=== PATIENT | female | born 1980 | race Caucasian/White ===

== ENCOUNTER 2022-12-17 15:22 | Outpatient (REF) | payer OTHER, SELFPAY ==
[2022-12-17 17:09] LABS: Alanine Aminotransferase 8 U/L (0-31); Albumin Level 4.4 g/dL (3.5-5.0); Alkaline Phosphatase 42 U/L (39-117); Anion Gap 16 (12-20); Aspartate Amino Transferase 14 U/L (5-31); Bilirubin Total 0.6 mg/dL (0.0-1.0); Blood Urea Nitrogen 7 mg/dL (9-16); Calcium 9.5 mg/dL (8.4-10.2); Carbon Dioxide 24 mmol/L (22-29); Chloride 105 mmol/L (96-108); Estimated Glomerular Filt Rate > 60; Glucose Random 97 mg/dL (60-115); Sodium 141 mmol/L (135-145); Total Protein 6.9 g/dL (6.5-8.0)
[2022-12-18 03:50] LABS: HBc Num1 0.08 S/CO (0.00-0.79); HBsAGNum1 0.33 S/CO (0.00-0.99); HIV AB/AG Nonreactive (Nonreactive); HIV Num 1 0.07 S/CO (0.00-0.99); Hepatitis A Antibody IgM 0.21 Index (0-0.79); Hepatitis B Core Antibody Nonreactive (Nonreactive); Hepatitis B Surface Antigen Negative (Negative); ~HepC Num1 0.08 S/CO (0.00-0.79); ~Hepatitis A Antibody IgM Nonreactive (Nonreactive); ~Hepatitis B Surface Antibody NONREACTIVE (Nonreactive); ~Hepatitis C Antibody Nonreactive (Nonreactive)
== END 2022-12-17 15:23 | disposition home or self-care (01) ==
LOC: HO.LAB 15:22
PROVIDERS: PCP Internal Medicine; Visit Provider Nurse Practitioner Psychiatric/Mental Health
DX: Z79.899 Other long term (current) drug therapy (principal); Z51.81 Encounter for therapeutic drug level monitoring
CPT/HCPCS: 36415; 80053; 80305; 86704; 86706; 86709; 86803; 87340; 87389

== ENCOUNTER 2022-12-17 15:22 | Outpatient (AMB) | payer OTHER, SELFPAY ==
--- OUTSIDE RECORDS SUMMARY | 2022-12-17 15:23 | XMS_ITS | Continuity of Care Document ---
Author Name Unknown Organization [facility] ter Address [address] [place] [id number] Care Team Providers Care Health Science Writer Name Role Phone Chio MATTSON, Sadia Primary Care Physician [phone] Encounter [facility] [place] Date(s): 03/23/21 - 03/26/[address] [id number]- Encounter Diagnosis COVID-19(Final) - 03/23/21 Discharge Disposition: A-D/C Home Attending Physician: Joselito Kilpatrick MD, Kirit Boone Admitting Physician: Rey Caro MD Referring Physician: Not on Staff, Referring MD Allergies, Adverse Reactions, Alerts Substance Reaction Severity Status NKA Active Immunizations Given and Recorded Vaccine Date Status Refusal Reason Adacel (Tdap) (oldterm) 04/30/12 Given Fluzone (oldterm) 1 01/23/12 Given 1Admin Note: 09/24/11 VIS Given. Medications Mirena 52 mg intrauteral device 1 each = 52 mg, Intrauterine, Once, # 1 each, 0 Refills, Soft Stop Start Date: 07/20/12 Status: Ordered Suboxone 12 mg-3 mg sublingual film 1 film, Sublingual, Daily, dissolve under the tongue, 0 Refills, Maintenance, 03/24/21 3:17:00 EST,Film, Partial fill upon patient request if the prescription is for a schedule II opioid drug. Start Date: 03/24/21 Status: Ordered Zofran 4 mg oral tablet 1 tablet = 4 mg, By Mouth, Every 8 hours, PRN as needed for nausea/vomiting, for 5 days, # 15 tablet, 0 Refills, Acute 03/31/21 13:09:00 EST, 03/26/21 13:09:00 EST, Tablet, [id number], Partial fill upon patient request if the prescription is f... Start Date: 03/26/21 Stop Date: 03/31/21 Status: Ordered Results Radiology Reports * Exam Date Time Procedure Performing Provider Status 03/24/21 4:53 AM Chest 2 Views Frontal and Lat Jose Elias Stanley; Claudio (Verified) Notes: (Chest 2 Views Frontal and Lat) Reason For Exam: Fever/Increased White Count RESULT: Chest 2 Views Frontal and Lat Chest 2 Views Frontal and Lat Reason: Fever Increased White Count; Clinical Question(s): Pneumonia COMPARISON: None. FINDINGS: LINES AND TUBES: None. LUNGS AND PLEURA: Clear lungs. Normal pulmonary vascularity. No pleural effusion. No pneumothorax. HEART, MEDIASTINUM AND DONAVAN: Heart is normal in size. Normal upper mediastinal and hilar contour. BONES AND SOFT TISSUES: No acute abnormality. IMPRESSION: No acute abnormality. WSN: [id number] Ordering Physician: Rickie Brumfield Dictated By: Ebony Adam MD Dictated Date/Time: 03/24/21 7:04 am Reviewed By: Ebony Adam MD Signed By: Ebony Adam MD Signed Date/Time: 03/24/21 7:04 am Transcribed By: ESPERANZA Transcribed Date/Time: 03/24/21 7:03 am Vital Signs Most recent to oldest [Reference Range]: 1 2 3 Height 162 cm (03/26/21 4:07 AM) 162 cm (03/25/21 11:34 PM) 162 cm (03/25/21 7:47 PM) Weight 58 kg (03/24/21 2:44 PM) Oxygen Saturation [94-100 %] 98 % (03/26/21 7:00 AM) 98 % (03/26/21 4:07 AM) 100 % (03/25/21 11:34 PM) Pulse Rate [55-90 bpm] 56 bpm (03/26/21 7:00 AM) 57 bpm (03/26/21 4:07 AM) 56 bpm (03/25/21 11:34 PM) Body Mass Index [18.5-24.99] 22.1 (03/24/21 2:44 PM) Blood Pressure [90-138/55-84 mm Hg] 142/76mm Hg *H* (03/26/21 7:00 AM) 151/81mm Hg *H* (03/26/21 4:07 AM) 126/80mm Hg (03/25/21 11:34 PM) Respiratory Rate [16-30 br/min] 18 br/min (03/26/21 7:00 AM) 20 br/min (03/26/21 4:07 AM) 20 br/min (03/25/21 11:34 PM) Temperature [96.8-100.4 DegF] 99.0 DegF (03/26/21 7:00 AM) 98.3 DegF (03/26/21 4:07 AM) 98.7 DegF (03/25/21 11:34 PM) Mode of Delivery (Oxygen) Room air (03/26/21 7:00 AM) Room air (03/26/21 4:07 AM) Room air (03/25/21 11:34 PM) Blood pressure sites Arm, left (03/26/21 7:00 AM) Arm, left (03/26/21 4:07 AM) Arm, left (03/25/21 11:34 PM) Temperature Route Oral (03/26/21 7:00 AM) Oral (03/26/21 4:07 AM) Oral (03/25/21 11:34 PM) Dry Weight 58 kg (03/24/21 2:44 PM)
--- OUTSIDE RECORDS SUMMARY | 2022-12-17 15:23 | XMS_ITS | Continuity of Care Document ---
Author Name Unknown Organization [facility] ter Address [address] [place] [id number] Care Team Providers Care Human Resources Receptionist Name Role Phone Chio MATTSON, Sadia Primary Care Physician [place] [facility] [place]25[place]22 - 03/28/[address] [address] Encounter Diagnosis SHAZIA (acute kidney injury)(Final) - 03/25/22 Discharge Disposition: A-D/C Home Attending Physician: Caron MATTSON, Jennifer Jade Admitting Physician: Robb Kahn MD Referring Physician: Not on Staff, Referring MD Allergies, Adverse Reactions, Alerts No Known Allergies Immunizations Given and Recorded Vaccine Date Status Refusal Reason SARS-CoV-2 (COVID-19) Ad26 vaccine 11/30/20 Record ed Adacel (Tdap) (oldterm) 04/30/12 Given Fluzone (oldterm) 1 01/23/12 Given Not Given Vaccine Date Status Refusal Reason influenza virus vaccine, inactivated 03/26/22 Not Given Patient Refuses 1Admin Note: 09/24/11 VIS Given. Medications acetaminophen 500 mg oral tablet 2 tablet = 1,000 mg, By Mouth, Every 6 hours, PRN as needed for fever, # 24 tablet, 0 Refills, Maintenance, 03/27/22 8:54:00 EST, Tablet, [facility], Partial fill upon patient request if the prescription is for a schedule II opioid drug.... Start Date: 03/27/22 Status: Ordered Augmentin 875 mg-125 mg oral tablet 1 tablet, By Mouth, Every 12 hours, for 7 days, # 14 tablet, 0 Refills, Acute 04/04/22 11:13:00 EST, 03/28/22 11:13:00 EST, Tablet, [facility], Partial fill upon patient request if the prescription is for a schedule II opioid drug., 161,... Start Date: 03/28/22 Stop Date: 04/04/22 Status: Ordered Mirena 52 mg intrauteral device 1 each = 52 mg, Intrauterine, Once, # 1 each, 0 Refills, Soft Stop Start Date: 07/20/12 Status: Ordered ondansetron 4 mg oral tablet 1 tablet = 4 mg, By Mouth, Every 8 hours, # 12 tablet, 0 Refills, Maintenance, 03/28/22 10:01:00 EST, Tablet, [facility], Partial fill upon patient request if the prescription is for a schedule II opioid drug., 161, cm, 03/27/22 20:18:00... Start Date: 03/28/22 Status: Ordered Protonix 40 mg oral delayed release tablet 1 tablet = 40 mg, By Mouth, Daily, # 30 tablet, 0 Refills, Maintenance, 03/28/22 10:00:00 EST, EC Tablet, 161, cm, 03/27/22 20:18:00 EST, Height, 52, kg, 03/25/22 21:41:00 EST, Dry Weight Start Date: 03/28/22 Stop Date: 04/27/22 Status: Ordered Suboxone 12 mg-3 mg sublingual film 1 film, Sublingual, Daily, dissolve under the tongue, 0 Refills, Maintenance, 03/24/21 3:17:00 EST,Film, Partial fill upon patient request if the prescription is for a schedule II opioid drug. Start Date: 03/24/21 Status: Ordered Results Orders for Microbiology Reports Name Date Blood Culture 03/26/22 Blood Culture #2 03/26/22 Microbiology Reports TEST:Blood Culture, Second Order STATUS:Unauthenticated BODY SITE: SOURCE:Blood COLLECTED DATE/TIME:03/26/22 1:30 AM Blood Culture, Second Order SPECIMEN DESCRIPTION : BLOOD LEFT LOWER ARM SPECIAL REQUESTS : NONE CULTURE : NO GROWTH AFTER 48 HOURS REPORT STATUS : PRELIMINARY REPORT TEST:Blood Culture STATUS:Unauthenticated BODY SITE: SOURCE:Blood COLLECTED DATE/TIME:03/26/22 1:14 AM Blood Culture SPECIMEN DESCRIPTION : BLOOD LEFT ARM SPECIAL REQUESTS : NONE CULTURE : NO GROWTH AFTER 48 HOURS REPORT STATUS : PRELIMINARY REPORT Radiology Reports * Exam Date Time Procedure Performing Provider Status 03/27/22 10:39 AM US Retroperitoneum Comp Edilma Galeana; Auth (Verified) Notes: (US Retroperitoneum Comp) Reason For Exam: Renal Failure RESULT: US Retroperitoneum Comp US Retroperitoneum Comp Reason: Renal Failure. Clinical Question(s): Renal Obstruction. COMPARISON: 03/24/2021. FINDINGS: Right kidney: 11.2 cm in length. No hydronephrosis. Normal parenchymal thickness and echotexture. No stones. No suspicious mass. Left kidney: 11.0 cm in length. No hydronephrosis. Normal parenchymal thickness and echotexture. Nostones. No suspicious mass. Urinary bladder: Incompletely distended, but no evidence of stone, mass, wall thickening or debris. IMPRESSION: Normal kidneys and urinary bladder. No hydronephrosis. I have personally reviewed the images and I agree with this report. WSN: [id number] Ordering Physician: Rickie Brumfield Dictated By: Len Sainz MD Dictated Date/Time: 03/27/22 2:14 pm Reviewed By: Elisabeth Chavarria MD Signed By: Elisabeth Chavarria MD Signed Date/Time: 03/27/22 2:19 pm Transcribed By: ESPERANZA Transcribed Date/Time: 03/27/22 10:50 am * Exam Date Time Procedure Performing Provider Status 03/26/22 1:44 AM Chest Portable Quiana Wyatt; Auth ( Verified) Notes: (Chest Portable) Reason For Exam: Fever/Increased White Count RESULT: Chest Portable Chest Portable AP upright Reason: Fever Increased White Count; Clinical Question(s): Pneumonia COMPARISON: 03/24/2021. FINDINGS: LINES AND TUBES: None. LUNGS AND PLEURA: Clear lungs. Normal pulmonary vascularity. No pleural effusion. No pneumothorax. HEART, MEDIASTINUM AND DONAVAN: Heart is normal in size. Normal mediastinal and hilar contour. BONES AND SOFT TISSUES: No acute abnormality. IMPRESSION: No radiographic evidence of an acute cardiopulmonary process. WSN: [id number] Ordering Physician: Rickie Brumfield Dictated By: Benny Powell MD Dictated Date/Time: 03/26/22 10:35 a Reviewed By: Benny Powell MD Signed By: Benny Powell MD Signed Date/Time: 03/26/22 10:35 am Transcribed By: ESPERANZA Transcribed Date/Time: 03/26/22 10:33 am Vital Signs Most recent to oldest [Reference Range]: 1 2 3 Height 161 cm (03/27/22 7:30 PM) 161 cm (03/27/22 2:41 PM) 161 cm (03/27/22 7:16 AM) Weight 55.2 kg (03/27/22 9:00 PM) 52 kg (03/25/22 9:41 PM) 57 kg (03/25/22 4:00 PM) Oxygen Saturation [94-100 %] 100 % (03/28/22 5:00 AM) 100 % (03/27/22 9:00 PM) 99 % (03/27/22 7:30 PM) Pulse Rate [55-90 bpm] 71 bpm (03/28/22 5:00 AM) 68 bpm (03/27/22 9:00 PM) 78 bpm (03/27/22 7:30 PM) Body Mass Index [18.5-24.99 kg/m2] 20.06 kg/m2 (03/25/22 9:41 PM) 21.99 kg/m2 (03/25/22 4:00 PM) Blood Pressure [90-138/55-84 mm Hg] 127/65mm Hg (03/28/22 5:00 AM) 152/82mm Hg *H* (03/27/22 9:00 PM) 135/80mm Hg (03/27/22 7:30 PM) Respiratory Rate [16-30 br/min] 18 br/min (03/28/22 5:00 AM) 18 br/min (03/27/22 9:00 PM) 18 br/min (03/27/22 7:30 PM) Temperature [96.8-100.4 DegF] 98.9 DegF (03/28/22 5:00 AM) 98.2 DegF (03/27/22 9:00 PM) 97.7 DegF (03/27/22 7:30 PM) Mode of Delivery (Oxygen) Room air (03/28/22 5:00 AM) Room air (03/27/22 9:00 PM) Room air (03/27/22 7:30 PM) Blood pressure sites Arm, right (03/28/22 5:00 AM) Arm, right (03/27/22 9:00 PM) Arm, right (03/27/22 7:30 PM) Temperature Route Oral (03/28/22 5:00 AM) Oral (03/27/22 9:00 PM) Oral (03/27/22 7:30 PM) Dry Weight 52 kg (03/25/22 9:41 PM) 57 kg (03/25/22 4:00 PM) 57 kg (03/25/22 10:24 AM) Weight Obtained Via Bed scale (03/27/22 9:00 PM) History and physical note * Rickie Brumfield MD: PERFORM Event Display: History and Physical Hospital Authored Date: Patient: ??AZ MELÉNDEZ ? Age:??41 Years?Sex:??Female?:??1980?? Chief Complaint/Reason for Consultation Nausea vomiting diarrhea History of Present Illness 41-year-old female presents the emergency room earlier today complaining of nausea vomiting and diarrhea.?? She tells me that for the last 2-3 days she has been feeling unwell. ??She is nauseous and vomiting up to 8 times per day.?? She has also had??1???2 episodes of diarrhea. ??She denies any melena or blood per rectum.?? She also denies any overt abdominal pain.?? She tells me that??she developed a sore tooth??last week. ??She was taking??ibuprofen 3 times a day at home??for the??oral discomfort. ??She denied any pus or abscess in the mouth. ??She further denied any fevers.?? She then started developing nausea and vomiting and was unable to tolerate any fluids.?? She has had a decreased urine output but denies any hematuria or dysuria. ??She further denies any shortness of breath,??cough, chest pain, focal weakness. ??In the emergency room she was noted to have a creatinine of 6.1??and a leukocytosis of 26.2.?? She was seen by renal who felt this was primarily prerenal azotemia??and started on IV fluids.?? She tells me they??that she is starting to make urine. Review of Systems Constitutional:??No weight loss, fever, chills, weakness or fatigue. Eyes:??No visual loss, blurred vision, double vision or yellow sclera ENT:??No hearing loss, sneezing, congestion, runny nose or sore throat. Respiratory:??No shortness of breath, cough or sputum production. Cardiovascular:??No chest pain, chest pressure or chest discomfort. No palpitations or pedal edema. Gastrointestinal:??Nausea and vomiting??diarrhea Genitourinary:??No burning micturition. No urinary frequency or incontinence. Neurologic:??No headache, dizziness, syncope, unilateral weakness, ataxia, numbness or tingling in the extremities. Musculoskeletal:??No muscle pain, back pain, joint pain or stiffness. Skin:??No rash or itching. Endocrine:??No reports of sweating. No cold or heat intolerance. No polyuria or polydipsia. Psychiatric:??No depression or anxiety. Objective Measurements?? Height: 161 cm (03/26/22) Weight: 52 kg (03/25/22) Dry Weight: 52 kg (03/25/22) Body Mass Index: 20.06 kg/m2 (03/25/22) ? Vital Signs?? Temperature: 98.6 DegF (03/26/22 04:59:00) Temperature Route: Oral (03/26/22 04:59:00) Pulse Rate: 67 bpm (03/26/22 04:59:00) Respiratory Rate: 18 br/min (03/26/22 04:59:00) Systolic Blood Pressure:??140 mm Hg??High (03/26/22 04:59:00) Diastolic Blood Pressure:??88 mm Hg??High (03/26/22 04:59:00) Blood pressure sites: Arm, right (03/26/22 04:59:00) Mean Arterial Pressure: 105 mm Hg (03/26/22 04:59:00) Pulse Pressure: 52 mm Hg (03/26/22 04:59:00) Oxygen Saturation: 97 % (03/26/22 04:59:00) Mode of Delivery (Oxygen): Room air (03/26/22 04:59:00) Early Warning Score: 3 (03/26/22 05:00:02) ? Physical Exam Constitutional: Alert, in no distress. Mental Status: Oriented to person, place and time. Head: Normocephalic. Eyes: Pupils are equal, round and reactive to light. Extraocular muscles intact. Ear, Nose and Throat: Left lower tooth???no clear abscess but??gum??tender Neck: Supple, Full range of motion. Respiratory: Clear to auscultation. No wheezing, rales or rhonchi. Cardiovascular: S1 S2 regular. No murmurs, rubs or gallops. Gastrointestinal: Abdomen soft, non-tender, non-distended. Normal bowel sounds. Neurologic: Cranial nerves II-XII grossly intact. No focal neurological deficits. Flexor plantar response. Moves all extremities spontaneously. Sensation intact bilaterally. Skin: No rashes or lesions. No petechiae or purpura.?? Musculoskeletal: No cyanosis or clubbing. No gross deformities. Normal range of motion. Psychiatric: Normal mood and affect Assessment/Plan ??41-year-old female admitted with??acute renal failure??in the setting of GI upset??and NSAID excess. ?? 1.?? Acute renal failure: Likely prerenal azotemia??in the setting of vomiting and poor oral intake Compounded by??excessive ibuprofen use Continue IV fluids Hold further NSAIDs Check renal ultrasound to rule out obstruction Renal following Monitor renal function ?? 2. ??Nausea and vomiting: Possible gastroenteritis Abdominal exam relatively benign ??negative LFT is normal If clinically declining??will pursue CT abdomen Clear liquid diet as tolerated PPI ?? 3.?? Leukocytosis: Possibly secondary to #2 Also possible infected??tooth although no clear abscess Will start Unasyn??for possible oral infection Transition to p.o. antibiotics??when??able to tolerate UA appears relatively benign Check chest x-ray and blood cultures Monitor abdominal exam ?? 4.?? DVT prophylaxis: Pneumatic compression boots ?? 5.?? Continue Suboxone ?? 6.?? CODE STATUS: Full code Discussed with patient at bedside ?? Patient seen 03/25/2022 ? Histories Allergies Allergies ?(Active and Proposed Allergies Only) NKA? (Severity: Unknown severity, Onset: Unknown) ? Past Medical History/Problem List Depression Opioid use disorder??in remission Laparoscopic cholecystectomy ? Social History Patient lives with her children Smokes 5/day Denies alcohol ?? Family History Negative for CAD ? Medications Home Medications Buprenorphine-Naloxone (Suboxone 12 mg-3 mg sublingual film)?1?Film?Sublingual?Daily?dissolve under the tongue Levonorgestrel (Mirena 52 mg intrauteral device)?1?Each?52?Milligram?Intrauterine?Once ? Results Recent Labs BLOOD COUNT & DIFF WBC 20.5 k/mm3 (High)?? 03/26/2022 01:14 RBC 4.22 m/mm3 ()?? 03/26/2022 01:14 Hgb 13.3 Gm/dL ()?? 03/26/2022 01:14 Hct 38.7 % ()?? 03/26/2022 01:14 MCV 91.7 femtoliters ()?? 03/26/2022 01:14 MCH 31.5 pg ()?? 03/26/2022 01:14 MCHC 34.4 g/dL ()?? 03/26/2022 01:14 Platelet Count 341 k/mm3 ()?? 03/26/2022 01:14 RDW-SD 40.0 femtoliters ()?? 03/26/2022 01:14 MPV 9.7 femtoliters ()?? 03/26/2022 01:14 Nucleated RBC (Automated) 0.0 #/100 WBC'S ()?? 03/26/2022 01:14 Abs. NRBC 0.0 k/mm3 ()?? 03/26/2022 01:14 Abs. Neut 21.6 k/mm3 (High)?? 03/25/2022 10:42 Abs. Lymph 2.1 k/mm3 ()?? 03/25/2022 10:42 Abs. [place] 2.3 k/mm3 (High)?? 03/25/2022 10:42 Abs. Eo 0.0 k/mm3 ()?? 03/25/2022 10:42 Abs. Baso 0.1 k/mm3 ()?? 03/25/2022 10:42 Neut % 82.4 % (High)?? 03/25/2022 10:42 Lymph % 8.1 % (Low)?? 03/25/2022 10:42 [place] % 8.7 % ()?? 03/25/2022 10:42 Eos % 0.0 % ()?? 03/25/2022 10:42 Baso % 0.2 % ()?? 03/25/2022 10:42 Imm Gran 0.6 % ()?? 03/25/2022 10:42 Abs. Imm Gran 0.2 k/mm3 ()?? 03/25/2022 10:42 ?? CHEM GENERAL Sodium 138 mmol/L ()?? 03/26/2022 01:14 Potassium 3.7 mmol/L ()?? 03/26/2022 01:14 Chloride 100 mmol/L ()?? 03/26/2022 01:14 Bicarbonate Level 25 mmol/L ()?? 03/26/2022 01:14 Anion Gap 13 ()?? 03/26/2022 01:14 Glucose Level 149 mg/dL (High)?? 03/25/2022 10:42 BUN 39 mg/dL (High)?? 03/26/2022 01:14 Creatinine-Blood 2.4 mg/dL (High)?? 03/26/2022 01:14 Estimated GFR Creatinine 26 ML/MIN/1.73 M2 ()?? 03/26/2022 01:14 Alkaline Phosphatase 88 units/L ()?? 03/25/2022 10:42 Lipase 15 units/L ()?? 03/26/2022 01:14 AST (SGOT) 21 units/L ()?? 03/25/2022 10:42 ALT (SGPT) 32 units/L ()?? 03/25/2022 10:42 Bilirubin, Total 0.5 mg/dL ()?? 03/25/2022 10:42 ?? ENDOCRINE/TUMOR MARKER Serum Qual NEGATIVE mIU/mL ()?? 03/26/2022 01:14 ?? UA/URINALYSIS Appear/Color, Urine LIGHT YELLOW ()?? 03/25/2022 17:45 Specific [place], Urine 1.021 ()?? 03/25/2022 17:45 pH, Urine 6.0 ()?? 03/25/2022 17:45 Albumin, Urine 2+ (Abnormal)?? 03/25/2022 17:45 Glucose, Urine NEGATIVE ()?? 03/25/2022 17:45 Ketones, Urine NEGATIVE ()?? 03/25/2022 17:45 Bilirubin, Urine NEGATIVE ()?? 03/25/2022 17:45 Hemoglobin, Urine 2+ (Abnormal)?? 03/25/2022 17:45 Nitrite, Urine NEGATIVE ()?? 03/25/2022 17:45 Leukocyte, Urine NEGATIVE ()?? 03/25/2022 17:45 Urobilinogen NORMAL mg/dL ()?? 03/25/2022 17:45 WBC's, Urine 1 /HPF ()?? 03/25/2022 17:45 RBC's, Urine 3 /HPF ()?? 03/25/2022 17:45 Squamous Epith <1 /HPF ()?? 03/25/2022 17:45 Hyaline Cast 8 LPF (High)?? 03/25/2022 17:45 Mucus SLIGHT /LPF ()?? 03/25/2022 17:45 Hold Urine Culture Testing available 48 hours from time of collection. ()?? 03/25/2022 11:04 ?? URINE OTHER Creatinine, Urine Random 203.1 mg/dL ()?? 03/25/2022 17:45 Sodium, Urine Random 34 mmol/L ()?? 03/25/2022 17:45 Chloride, Urine Random <20 mmol/L ()?? 03/25/2022 17:45 Urea Nitrogen, Urine Random 539.0 mg/dL ()?? 03/25/2022 17:45 Osmolality, Urine Random 389 mOsm/kg ()?? 03/25/2022 17:45 ?? VIROLOGY COVID-19 POC Result NEGATIVE ()?? 03/25/2022 10:24 ? EKG study * Event Display: ECG 12-Lead Authored Date: Please click on pdf link to open report * Event Display: ECG 12-Lead Authored Date: Ventricular Rate: 82 BPM Atrial Rate: 82 BPM P-R Interval: 136 ms QRS Duration: 94 ms Q-T Interval: 340 ms QTC Calculation(Bazett): 397 ms P [place]: 73 degrees R [place]: 72 degrees T [place]: 77 degrees Normal sinus rhythm with sinus arrhythmia Poor data quality, interpretation may be adversely affected Possible Left atrial enlargement Borderline ECG When compared with ECG of 23-MAR-2021 22:40, No significant change was found Confirmed by SANJIV MATTSON, [facility] ([id number]) on 03/25/2022 4:30:08 PM Froid: [facility] * Itzel Cordon RN: PERFORM, SIGN, VERIFY Event Display: [facility] Authored Date: Patient: AZ MELÉNDEZ Age: 41 years Sex: Female : 1980 Associated Diagnoses: None Author: Itzel Cordon RN Findings Problem Related to Alteration in Gastrointestinal : Alteration in Gastrointestinal Func/new 03/28/2022 11:00 EST Alteration in GI status Related to Other: Nausea and vomiting Goals & Outcomes, Gastrointestinal Pt will achieve normal/improved fluid balance, Pt will resume/maintain adequate hemodynamic status Interventions, Gastrointestinal Resolved problem, Interventions no longer in effect Goals/Interventions, Gastrointestinal Yes Gastrointestinal, Problem Start 03/26/2022 21:00 Reviewed plan with, Gastrointestinal Patient Patient Progression, Gastrointestinal Resolved problem Gastrointestinal, Problem Resolved 03/28/2022 11:51 . Alteration in Genitourinary : Alteration in Genitourinary Function/new 03/28/2022 11:00 EST Alteration in Status Related to Other: acute kidney injury Goals & Outcomes, Genitourinary Pt will achieve normal/improved fluid balance, Pt will maintainadequate GI function appropriate for pt, Pt will maintain adequate function appropriate for pt, Pt will maintain normal fluid balance, Pt will resume normal pattern of elimination, Pt/caregiver will state understanding of self-care skills Interventions, Resolved problem, Interventions no longer in effect Goals/Interventions, Genitourinary Yes Genitourinary, Problem Start 03/25/2022 22:03 Reviewed Plan with, Genitourinary Patient Patient Progression, Genitourinary Resolved problem Genitourinary, Problem Ongoing Yes Genitourinary, Problem Resolved 03/28/2022 11:51 . Evaluation Pt alert, oriented x 4, she denies pain on assessment, pt c/o nausea, no emesis noted or reported, prn IV Zofran given one time with good effect. Stool softener offered d/t no bm since before adm, ptstates I have some at home . Potassium Chloride given one time as ordered, pt shaggy well. Pt discharged home, d/c instructions reviewed with pt, questions encouraged and answered, pt verbalizes understanding. IV access removed, cath tip intact. Pt notified of dentist appt this afternoon, info provided with discharge, work note given as requested. Pt left unit ambulatory, accompanied by spouse. . Discharge Information Case Management Discharge Plan : Case Management Discharge Plan Data 03/28/2022 11:38 EST Discharge Level of Care at Discharge Home/Half-Way/Foster Care * Radha Pastrana LPN: PERFORM, SIGN, VERIFY Event Display: Progress Note Hospital Authored Date: Patient: AZ MELÉNDEZ Age: 41 years Sex: Female : 1980 Associated Diagnoses: None Author: Radha Pastrana LPN Findings Evaluation Pt. transfered to this Unit S64 from [facility] @ aprox. 2200, IV antibiotic administered as ordered,PRN Compazine given for c/o nausea (see MAY), Bed down for safety, callbell in place and Pt. instructed how to use. As she wished Pt. requested and took shower prior to having her antibiotic administered last night. Pt. reported she slept some, requested lyubov dima and given aprox. 5 min ago. Pt. resting in bed at present as IV antibiotic runs. No SOB, +B.S, L.S clear. . * Caron MATTSON, Jennifer Jade: PERFORM Event Display: Progress Note Hospital Authored Date: Patient: ??AZ MELÉNDEZ ? Age:??41 Years?Sex:??Female?:??1980?? Subjective seen and examined wbc coming down nicely still c/o nausea creat improved Review of Systems Constitutional: No fever or chills. ENT: No sore throat or nasal congestion, c/o left sided tootache Respiratory: No shortness of breath or cough??. Cardiovascular: No chest pain or??palpitation. Gastrointestinal:?? C/o??nausea, no vomiting or diarrhea. Skin: No rash or lesion Neurology: No speech problem no vision problem no focal weakness, no dizziness. Psychiatric: Cooperative, normal mood and affect Objective ?? Physical Exam Awake, alert, oriented Lungs: Clear to auscultation bilateral, no wheezing no rales Heart: Regular rate and rhythm, no murmur, no rub or gallop Abdomen: Soft, nontender, nondistended; Bowel sounds present Extremity: No edema cyanosis clubbing Neurological: No focal deficit Psychiatric: Normal mood and affect Assessment/Plan Assessment:? 41-year-old female with past medical history of opiate use disorder (on Suboxone) who presented on 03/25/2022 with 2-3 days of nausea, vomiting, inability to take PO, diarrhea, in the background of daily NSAID use for a tooth ache. The patient was found to have severe SHAZIA with metabolic acidosis.? Acute Kidney Injury (SHAZIA): resolved ?? Normal baseline renal function with Cr 0.5-0.6mg/dL Past SHAZIA in 02/2021 similar GI losses leading to a Cr of 4.7mg/dL which resolved quickly with IVF support. Peak creat??on admission??6.1mg/dL, down to 2.4 with IVF and further down to 0.6 today ?Renal US Normal kidneys and urinary bladder. ??No hydronephrosis. ?? Likely in the setting of??Ibuprofen use and DH ? Plan: Will discontinue IVF Renal US Nephrology on board Will avoid NSAID and nephrotoxins ?? AGMA ketonuria on U/A starvation ketosis and renal failure leading to anion gap ?? Resolved ? Nausea and vomiting: Improved ?Possible gastroenteritis ??Abdominal exam relatively benign ?? negative ??LFT is normal ?? Improved ?Leukocytosis: Could be due to tooth infection WBC coming down nicely, from 26.2 k to 14.1 k Plan: Will continue Unasyn and??transition to p.o. antibiotics at d/c Out patient ENT follow up ?DVT prophylaxis: ??Pneumatic compression boots ?? opiate use disorder : Continue Suboxone ?CODE STATUS:?Full code ? Discharge Planning:?? D/C home tomorrow (Can go early) ? Note * Itzel Cordon RN: PERFORM Event Display: Discharge/Transfer Note Hospital Authored Date: [id number] Nursing Discharge Note Entered On: 03/28/2022 11:38 EST Performed On: 03/28/2022 11:38 EST by Itzel Cordon RN Nursing Discharge Note 2 Discharge Time : 03/28/2022 11:38 EST Discharge Level of Care at Discharge : Home/Half-Way/Foster Care Patient Left Unit Via : Ambulatory Patient Accompanied Off Unit with : Significant other DC Instructions Provided & Signed by Pt : Yes Patient Understands D/C Instructions : Yes Patient Instructions Discharge Signed : Yes Did Pt have Specialty Bed or Wound Vac : No Itzel Cordon RN - 03/28/2022 11:38 EST * Jennifer Reardon MD: PERFORM Event Display: Discharge/Transfer Note Hospital Authored Date: [id number] Patient: ??AZ MELÉNDEZ ? Age:??41 Years?Sex:??Female?:??1980?? Patient Information Discharge Location: 4 Primary Care Physician: Sadia Barroso MD Admit Date/Time: 03/25/22 13:36 Discharge Disposition Discharge Disposition: ?? Discharge Diagnosis SHAZIA (acute kidney injury) (N17.9) Dental infection?? _ Discharge Medications Acetaminophen (acetaminophen 500 mg oral tablet)?2?tab(s)?1,000?Milligram?By Mouth?Every 6 hours?as needed?as needed for fever Amoxicillin-Clavulanate (Augmentin 875 mg-125 mg oral tablet)?1?tab(s)?By Mouth?Every 12 hours?for 7?Days Buprenorphine-Naloxone (Suboxone 12 mg-3 mg sublingual film)?1?Film?Sublingual?Daily?dissolve under the tongue Levonorgestrel (Mirena 52 mg intrauteral device)?1?Each?52?Milligram?Intrauterine?Once Ondansetron (ondansetron 4 mg oral tablet)?1?tab(s)?4?Milligram?By Mouth?Every 8 hours Pantoprazole (Protonix 40 mg oral delayed release tablet)?1?tab(s)?40?Milligram?By Mouth?Daily?for 30?Days ? Medications Started Augmentin, Zofran Allergies Allergies ?(Active and Proposed Allergies Only) NKA? (Severity: Unknown severity, Onset: Unknown) ? Hospital Course 41-year-old female with past medical history of opiate use disorder (on Suboxone) who presented on 03/25/2022 with 2-3 days of nausea, vomiting, inability to take PO, diarrhea, in the background of daily NSAID use for a tooth ache. The patient was found to have severe SHAZIA with metabolic acidosis. ?? Acute Kidney Injury (SHAZIA) Normal baseline renal function with Cr 0.5-0.6mg/dL Past SHAZIA in 02/2021 similar GI losses leading to a Cr of 4.7mg/dL which resolved quickly with IVF support. US Kidney: Normal kidneys and urinary bladder. No hydronephrosis. ?? Peak creat on admission 6.1mg/dL, down to 0.5? Likely in the setting of Ibuprofen use and DH She is being discharged home in a stable and improved condition ?? Will avoid NSAID and nephrotoxins ? AGMA ketonuria on U/A starvation ketosis and renal failure leading to anion gap ?? Resolved ?Nausea and vomiting: Improved, still has some nausea ??Will give prn zofran ?Possible gastroenteritis ??Abdominal exam relatively benign ?? negative ??LFT is normal ?? Will continue PPI Out patient GI f/up ?Leukocytosis: Could be due to tooth infection ?? Treated with??Unasyn; will transition to PO Augmentin ?? F/up with Dentist today?? at 2:15??pm ? Opiate use disorder : Continue Suboxone ?? CODE STATUS: Full code ? Objective Assessment and Plan Assessment:? 41-year-old female with past medical history of opiate use disorder (on Suboxone) who presented on 03/25/2022 with 2-3 days of nausea, vomiting, inability to take PO, diarrhea, in the background of daily NSAID use for a tooth ache. The patient was found to have severe SHAZIA with metabolic acidosis.? Acute Kidney Injury (SHAZIA) Normal baseline renal function with Cr 0.5-0.6mg/dL Past SHAZIA in 02/2021 similar GI losses leading to a Cr of 4.7mg/dL which resolved quickly with IVF support. Peak creat??on admission??6.1mg/dL, down to 2.4 with IVF ?? Likely in the setting of??Ibuprofen use and DH ? Plan: Will continue IVF Renal US Nephrology on board Will avoid NSAID and nephrotoxins ?? AGMA ketonuria on U/A starvation ketosis and renal failure leading to anion gap ?? Plan: - IVF support as above - monitor? Nausea and vomiting: Improved ?Possible gastroenteritis ??Abdominal exam relatively benign ?? negative ??LFT is normal ?? IVF as above ?Leukocytosis: Could be due to tooth infection Plan: Will continue Unasyn and??transition to p.o. antibiotics at d/c Out patient ENT follow up ?DVT prophylaxis: ??Pneumatic compression boots ?? opiate use disorder : Continue Suboxone ?CODE STATUS:?Full code ? Discharge Planning:? Vital Signs?? Temperature: 98.9 DegF (03/28/22 05:00:00) Temperature Route: Oral (03/28/22 05:00:00) Pulse Rate: 71 bpm (03/28/22 05:00:00) Respiratory Rate: 18 br/min (03/28/22 05:00:00) Systolic Blood Pressure: 127 mm Hg (03/28/22 05:00:00) Diastolic Blood Pressure: 65 mm Hg (03/28/22 05:00:00) Blood pressure sites: Arm, right (03/28/22 05:00:00) Mean Arterial Pressure: 98 mm Hg (03/27/22 19:30:00) Pulse Pressure: 55 mm Hg (03/27/22 19:30:00) Oxygen Saturation: 100 % (03/28/22 05:00:00) Mode of Delivery (Oxygen): Room air (03/28/22 05:00:00) Early Warning Score: 0 (03/28/22 05:50:27) ? . Physical Exam Pending Results Blood Culture ordered on 03/26/2022 Blood Culture #2 ordered on 03/26/2022 Patient Education Titles Discharge Instructions for Acute Kidney Injury?? Caring for Yourself When You Have Kidney Failure?? Follow-Up Appointments Added Follow Up ?Time Frame ?Comments Jackie Dhaliwal?03/28/2022 14:15?You have an appoitment today at [facility] in [place] with Dr. Dhaliwal. ??The office is located at [address] [place] [address], [address] [place], [place] [id number]. ?? . Sadia Barroso MD?1 week Sadia Barroso MD Post Discharge Care Discharge ?03/28/22 9:59:00 EST Discharge Prescriptions ?ePrescribed, ??03/28/22 9:59:00 EST Home Health Face to Face ^HomeHealthFTF Results Discharge Labs BLOOD COUNT & DIFF WBC 9.9 k/mm3 ()?? 03/28/2022 00:29 RBC 3.48 m/mm3 (Low)?? 03/28/2022 00:29 Hgb 10.9 Gm/dL (Low)?? 03/28/2022 00:29 Hct 32.0 % (Low)?? 03/28/2022 00:29 MCV 92.0 femtoliters ()?? 03/28/2022 00:29 MCH 31.3 pg ()?? 03/28/2022 00:29 MCHC 34.1 g/dL ()?? 03/28/2022 00:29 Platelet Count 238 k/mm3 ()?? 03/28/2022 00:29 RDW-SD 39.8 femtoliters ()?? 03/28/2022 00:29 MPV 10.2 femtoliters ()?? 03/28/2022 00:29 Nucleated RBC (Automated) 0.0 #/100 WBC'S ()?? 03/28/2022 00:29 Abs. NRBC 0.0 k/mm3 ()?? 03/28/2022 00:29 Abs. Neut 6.9 k/mm3 ()?? 03/28/2022 00:29 Abs. Lymph 2.1 k/mm3 ()?? 03/28/2022 00:29 Abs. Iroquois 0.9 k/mm3 ()?? 03/28/2022 00:29 Abs. Eo 0.0 k/mm3 ()?? 03/28/2022 00:29 Abs. Baso 0.0 k/mm3 ()?? 03/28/2022 00:29 Neut % 69.2 % ()?? 03/28/2022 00:29 Lymph % 21.5 % ()?? 03/28/2022 00:29 Iroquois % 8.8 % ()?? 03/28/2022 00:29 Eos % 0.0 % ()?? 03/28/2022 00:29 Baso % 0.2 % ()?? 03/28/2022 00:29 Imm Gran 0.3 % ()?? 03/28/2022 00:29 Abs. Imm Gran 0.0 k/mm3 ()?? 03/28/2022 00:29 ?? CHEM GENERAL Sodium 139 mmol/L ()?? 03/28/2022 00:29 Potassium 3.4 mmol/L (Low)?? 03/28/2022 00:29 Chloride 101 mmol/L ()?? 03/28/2022 00:29 Bicarbonate Level 28 mmol/L ()?? 03/28/2022 00:29 Anion Gap 10 ()?? 03/28/2022 00:29 Glucose Level 86 mg/dL ()?? 03/28/2022 00:29 BUN 9 mg/dL ()?? 03/28/2022 00:29 Creatinine-Blood 0.5 mg/dL ()?? 03/28/2022 00:29 Estimated GFR Creatinine 122 ML/MIN/1.73 M2 ()?? 03/28/2022 00:29 Calcium 8.6 mg/dL ()?? 03/28/2022 00:29 Magnesium 1.6 mg/dL ()?? 03/28/2022 00:29 Alkaline Phosphatase 88 units/L ()?? 03/25/2022 10:42 Lipase 15 units/L ()?? 03/26/2022 01:14 AST (SGOT) 21 units/L ()?? 03/25/2022 10:42 ALT (SGPT) 32 units/L ()?? 03/25/2022 10:42 Bilirubin, Total 0.5 mg/dL ()?? 03/25/2022 10:42 ?? ENDOCRINE/TUMOR MARKER Serum Qual NEGATIVE mIU/mL ()?? 03/26/2022 01:14 ? UA/URINALYSIS Appear/Color, Urine LIGHT YELLOW ()?? 03/25/2022 17:45 Specific [place], Urine 1.021 ()?? 03/25/2022 17:45 pH, Urine 6.0 ()?? 03/25/2022 17:45 Albumin, Urine 2+ (Abnormal)?? 03/25/2022 17:45 Glucose, Urine NEGATIVE ()?? 03/25/2022 17:45 Ketones, Urine NEGATIVE ()?? 03/25/2022 17:45 Bilirubin, Urine NEGATIVE ()?? 03/25/2022 17:45 Hemoglobin, Urine 2+ (Abnormal)?? 03/25/2022 17:45 Nitrite, Urine NEGATIVE ()?? 03/25/2022 17:45 Leukocyte, Urine NEGATIVE ()?? 03/25/2022 17:45 Urobilinogen NORMAL mg/dL ()?? 03/25/2022 17:45 WBC's, Urine 1 /HPF ()?? 03/25/2022 17:45 RBC's, Urine 3 /HPF ()?? 03/25/2022 17:45 Squamous Epith <1 /HPF ()?? 03/25/2022 17:45 Hyaline Cast 8 LPF (High)?? 03/25/2022 17:45 Mucus SLIGHT /LPF ()?? 03/25/2022 17:45 Hold Urine Culture Testing available 48 hours from time of collection. ()?? 03/25/2022 11:04 ? URINE OTHER Creatinine, Urine Random 203.1 mg/dL ()?? 03/25/2022 17:45 Sodium, Urine Random 34 mmol/L ()?? 03/25/2022 17:45 Chloride, Urine Random <20 mmol/L ()?? 03/25/2022 17:45 Urea Nitrogen, Urine Random 539.0 mg/dL ()?? 03/25/2022 17:45 Osmolality, Urine Random 389 mOsm/kg ()?? 03/25/2022 17:45 ? VIROLOGY COVID-19 PCR Specimen Source NASAL ()?? 03/26/2022 05:16 COVID-19 PCR Result NEGATIVE ()?? 03/26/2022 05:16 COVID-19 POC Result NEGATIVE ()?? 03/25/2022 10:24 ? Microbiology ?? COVID-19 (2019 Novel Coronavirus) PCR?? Completed?? Source: Nasal Body Site: Nose Collected Dt/Tm: 03/26/2022 05:17 Last Updated Dt/Tm: 03/26/2022 15:22 ? 35_ minutes spent on discharge * Aurelia Enciso RN: PERFORM Event Display: Patient Education/Instruction Authored Date: [id number] Inpatient Adult Discharge Instructions [address] [address] Name: AZ MELÉNDEZ : 1980 Visit: 03/25/2022 13:36:00 Current Date: 03/28/2022 10:44 Account: [id number] Inpatient Adult Discharge Instructions We would like to thank you for allowing us to assist you with your healthcare needs. The following includes patient education materials and information regarding your injury/illness. Our entire staffstrives to provide an excellent experience for our patients and their families. PLEASE ENSURE YOU FOLLOW-UP PER THE INSTRUCTIONS BELOW! ?? YOUR OPINION IS IMPORTANT TO US! Please complete the survey you may receive by mail or email. Your feedback will be used to make improvements to the healthcare experiences of our patients and their families. Surveys are administered by [employer] ?? If further treatment with your primary care physician or another doctor is recommended, it is important for you to keep the appointment. Call your primary care physician or return to the Emergency Department immediately if your condition worsens, fails to improve, or new symptoms develop. If you need to find a doctor, you can call [facility] for a referral at [phone] or toll free at [phone] or log in to [email or web address].. ?? You can view and manage your care through the patient portal or by using a health care kye of your choosing. [employer] is a website that allows you to securely view your medical information including your hospital discharge summary, office visit summaries, medications and follow-up visits. You can also request appointments, renew medications, and request access to your medical information using a health care kye of your choosing, or just ask a question. You can enroll at [email or web address] or register during your next office visit. You have been discharged from [facility], Patient Care Unit: S64. If you have any questions regarding these instructions after you leave, please call us and we will be happy to assist you. [facility] Your Care Team Attending Physician Jennifer Reardon MD Consulting Providers Benny MATTSON, Karthik Francis MD Discharging Providers Caron MATTSON, Jennifer Jade Reason for Admission Vomiting Your Diagnosis HSAZIA (acute kidney injury) Tests Performed Below is a partial list of the tests performed during your hospitalization. You may have had other tests and procedures not included in this list. Please discuss all test results with your provider. Alk Phos ALT AST Basic Metabolic Panel BUN CBC CBC w/ Differential Complete Urinalysis COVID-19 (2019 Novel Coronavirus) PCR COVID-19 RNA POC Creatinine Electrolytes Glucose Level Lipase Magnesium Level Serum Qualitative Total Bilirubin UREA NITROGEN, URINE MG/DL Urinalysis w/hold for Urine Culture Urine Chloride Urine Creatinine Urine Osmolality Urine Sodium Portable Chest US Retroperitoneum Comp Primary Care Provider Sadia Barroso MD Advance Directive Health Care Proxy on File No Patient refuses to discuss No qualifying data available. Discharge Vitals Temperature: 98.9 DegF Height: 161 cm Pulse Rate: 71 bpm Weight: 55.2 kg Respiratory Rate: 18 br/min Body Mass Index: 20.06 kg/m2 Systolic Blood Pressure: 127 mm Hg Body surface area: 1.52 Diastolic Blood Pressure: 65 mm Hg ?? Oxygen Saturation: 100 % ?? Studies Pending All tests and labs ordered during this hospital stay have been completed unless listed below. Please discuss all pending results with your provider listed above in these instructions. ?? Blood Culture Blood Culture #2 What to do next Instructions From Your Doctor Discharge Orders You Need to Schedule the Following Appointments Follow Up with??Sadia Barroso MD When??Within 1 week Where: [address] [place] [address]- Follow Up with??Sadia Barroso MD When?? Where: [address] [place] [address]- Discharge Medications AZ MELÉNDEZ :1980 Visit Date:03/25/2022 Medications: Please continue your medications until treatment is completed or stopped by your provider. Medications not listed below should be discontinued. Discuss any questions related to medications with your provider. What How Much When Instructions Next Dose New Acetaminophen (acetaminophen 500 mg oral tablet) 2 tab(s) Oral Every 6 hours as needed for as needed for fever Pickup at [facility] 3 As needed New Amoxicillin-Clavulanate (Augmentin 875 mg-125 mg oral tablet) 1 tab(s) Oral Every 12 hours Duration: 7 Days Pickup at [facility] 3 Today New Ondansetron (ondansetron 4 mg oral tablet) 1 tab(s) Oral Every 8 hours Pickup at [place] [address] Today New Pantoprazole (Protonix 40 mg oral delayed release tablet) 1 tab(s) Oral Daily Duration: 30 Days Pickup at [place] [address] Tomorrow morning Unchanged Buprenorphine-Naloxone (Suboxone 12 mg-3 mg sublingual film) 1 Film Sublingual Daily dissolve under the tongue ?? Tomorrow morning Unchanged Levonorgestrel (Mirena 52 mg intrauteral device) 1 Each Intrauterine Once Pharmacy Information [facility] 3: [address], [place] [phone] Test Results Below is a partial list of the most recent Laboratory test results done prior to this discharge. You may have had other tests and procedures not included in this list. Please discuss all test resultswith your provider. Alk Phos (03/25/2022) ???Alkaline Phosphatase - 88 units/L ALT (03/25/2022) ???ALT (SGPT) - 32 units/L AST (03/25/2022) ???AST (SGOT) - 21 units/L Basic Metabolic Panel (03/28/2022) ???Sodium - 139 mmol/L???Potassium - 3.4 mmol/L???Chloride - 101 mmol/L???Bicarbonate Level - 28 mmol/L???Anion Gap - 10???Glucose Level - 86 mg/dL???BUN - 9 mg/dL???Creatinine-Blood - 0.5 mg/dL???Estimated GFR Creatinine - 122 ML/MIN/1.73 M2???Calcium - 8.6 mg/dL BUN (03/27/2022) ???BUN - 13 mg/dL CBC (03/26/2022) ???WBC - 20.5 k/mm3???RBC - 4.22 m/mm3???Hgb - 13.3 Gm/dL???Hct - 38.7 %???MCV - 91.7 femtoliters???MCH - 31.5 pg???MCHC - 34.4 g/dL???Platelet Count - 341 k/mm3???RDW-SD - 40.0 femtoliters???MPV - 9.7 femtoliters???Nucleated RBC (Automated) - 0.0 #/100 WBC'S???Abs. NRBC - 0.0 k/mm3 CBC w/ Differential (03/28/2022) ???WBC - 9.9 k/mm3???RBC - 3.48 m/mm3???Hgb - 10.9 Gm/dL???Hct - 32.0 %???MCV - 92.0 femtoliters???MCH - 31.3 pg???MCHC - 34.1 g/dL???Platelet Count - 238 k/mm3???RDW-SD - 39.8 femtoliters???MPV - 10.2 femtoliters???Nucleated RBC (Automated) - 0.0 #/100 WBC'S???Abs. NRBC - 0.0 k/mm3???Abs. Neut - 6.9 k/mm3???Abs. Lymph - 2.1 k/mm3???Abs. Iroquois - 0.9 k/mm3???Abs. Eo - 0.0 k/mm3???Abs. Baso - 0.0 k/mm3???Neut % - 69.2 %???Lymph % - 21.5 %???Iroquois % - 8.8 %???Eos % - 0.0 %???Baso % - 0.2 %???Imm Gran - 0.3 %???Abs. Imm Gran - 0.0 k/mm3 Complete Urinalysis (03/25/2022) ???Appear/Color, Urine - LIGHT YELLOW???Specific [place], Urine - 1.021???pH, Urine - 6.0???Albumin, Urine - 2+???Glucose, Urine - NEGATIVE???Ketones, Urine - NEGATIVE???Bilirubin, Urine - NEGATIVE???Hemoglobin, Urine - 2+???Nitrite, Urine - NEGATIVE???Leukocyte, Urine - NEGATIVE???Urobilinogen - NORMAL? ?WBC's, Urine - 1 /HPF? ?RBC's, Urine - 3 /HPF? ?Squamous Epith - <1 /HPF? ?Hyaline Cast -8 LPF???Mucus - SLIGHT COVID-19 (2019 Novel Coronavirus) PCR (03/26/2022) ???COVID-19 PCR Specimen Source - NASAL???COVID-19 PCR Result - NEGATIVE COVID-19 RNA POC (03/25/2022) ???COVID-19 POC Result - NEGATIVE Creatinine (03/27/2022) ???Creatinine-Blood - 0.6 mg/dL???Estimated GFR Creatinine - 120 ML/MIN/1.73 M2 Electrolytes (03/27/2022) ???Sodium - 140 mmol/L???Potassium - 4.1 mmol/L???Chloride - 103 mmol/L???Bicarbonate Level - 27 mmol/L???Anion Gap - 10 Glucose Level (03/27/2022) ???Glucose Level - 88 mg/dL Lipase (03/26/2022) ???Lipase - 15 units/L Magnesium Level (03/28/2022) ???Magnesium - 1.6 mg/dL Serum Qualitative (03/26/2022) ??? Serum Qual - NEGATIVE Total Bilirubin (03/25/2022) ???Bilirubin, Total - 0.5 mg/dL UREA NITROGEN, URINE MG/DL (03/25/2022) ???Urea Nitrogen, Urine Random - 539.0 mg/dL Urinalysis w/hold for Urine Culture (03/25/2022) ???Appear/Color, Urine - YELLOW???Specific [place], Urine - 1.032???pH, Urine - 5.0???Albumin, Urine - 2+???Glucose, Urine - TRACE???Ketones, Urine - TRACE???Bilirubin, Urine - NEGATIVE???Hemoglobin,Urine - 1+???Nitrite, Urine - NEGATIVE???Leukocyte, Urine - NEGATIVE???Urobilinogen - 2 mg/dL???WBC's, Urine - 4 /HPF???RBC's, Urine - 13 /HPF???Squamous Epith - 2 /HPF???Mucus - SLIGHT???Hold Urine Culture - Testing available 48 hours from time of collection. Urine Chloride (03/25/2022) ? ?Chloride, Urine Random - <20 mmol/L Urine Creatinine (03/25/2022) ???Creatinine, Urine Random - 203.1 mg/dL Urine Osmolality (03/25/2022) ???Osmolality, Urine Random - 389 mOsm/kg Urine Sodium (03/25/2022) ???Sodium, Urine Random - 34 mmol/L Immunizations This Visit Not Given Vaccine Commentsinfluenza virus vaccine, inactivated Patient Refuses Allergies (NKA means No Known Allergies) NKA Problems Active Problems??(1) Opiate addiction?? Education Materials Below is the list of Educational Leaflet Providered with your Discharge Instructions. Valuables and Belongings I fully understand and agree that [facility] accepts no responsibility for all my personal property including clothing, toilet articles, radios, jewelry, dentures, hearing aids, rings, money, or any other property that is in my possession or is brought to me after admission. I understand certain valuables may be placed in a hospital safe for a short period of time. I understand that the hospital is not liable for loss or damage due to accident, fire, or other natural occurrence while said property is in the safe. I accept full responsibility for any personal property that I keep with me, and will not hold the hospital responsible in case of loss or disappearance. I acknowledge that i have been encouraged to send valuables and belongings home. ?? Review of Valuable and Belonging List: With patient Date for Pt to Sign Valuables/Belongings: 03/27/22 21:12:00 ?? Other Discharge Information ? Pulmonary Rehab Status?? Pulmonary Rehab Discharge Status?? Respiratory Rate: 18 br/min ? Common Emergency Awareness Tips IS IT A STROKE? Act FAST and Check for these signs: FACE Does the face look uneven? ARM Does one arm drift down? SPEECH Does their speech sound strange? TIME Call at any sign of stroke ?? Heart Attack Signs Chest discomfort: Most heart attacks involve discomfort in the center of the chest and lasts more than a few minutes, or goes away and comes back. It can feel like uncomfortable pressure, squeezing, fullness or pain. Discomfort in upper body: Symptoms can include pain or discomfort in one or both arms, back, neck, jaw or stomach. Shortness of breath: With or without discomfort. Other signs: Breaking out in a cold sweat, nausea, or lightheaded. Remember, MINUTES DO MATTER. If you experience any of these heart attack warning signs, call to get immediate medical attention! ?? Smoking can increase your chances of developing chronic health problems and can cause harmful effects to other family members in your house. If you smoke, you are strongly encouraged to quit. Please call [facility] at [phone] or [phone] ([phone]) or log in to [email or web address] for referrals to smoking cessation programs. ?? The National Suicide Prevention Hotline is available 15/10 if you or someone you know needs to find a reason to keep living. By calling 7-537-544-[employer] (8787) you'll be connected to a skilled, trained counselor at a crisis center in your area. INPATIENT DISCHARGE INSTRUCTIONS SIGNATURE TOM AZ MELÉNDEZ Location:[facility] Registration Date and Time:03/25/2022 13:36 EST Primary Care Physician: Chio MATTSON, [facility], I AZ MELÉNDEZ, have received the above patient education materials/instructions and have verbalized understanding. If ambulance or transport services are being used I further acknowledge being given a choice of service. ?? If you need to contact me, please call me at this number: . Patient/Senior Mechanical Engineer Name: Patient/Senior Mechanical Engineer Signature: Relationship to Patient: Witness Name/Signature: Date: * Anastasiia Powell RN: PERFORM, SIGN, VERIFY Event Display: Patient Education Handout Authored Date: [id number] * Aurelia Enciso RN: PERFORM Event Display: Patient Education Leaflets Authored Date: [id number] Discharge Instructions for Acute Kidney Injury ?? [address] Discharge Instructions for Acute Kidney Injury You have been diagnosed with acute kidney injury. This means that you have had a sudden episode of kidney failure or damage that causes your kidneys not to work correctly. When both kidneys are healthy, they help filter out fluid and waste from the blood and body.??Acute kidney injury has many causes. These include urinary blockages, infection, lack of enough blood supply, and medicines that can injure??kidneys. In some cases, acute kidney injury is short-term (temporary). This type lasts several days to a few months. This is because the kidney can repair itself. Acute kidney injury can also result in chronic kidney disease or end stage renal failure. Here are some directions for you to follow as you recover. Home care ??? Follow any directions for eating and drinking given to you by your healthcare provider. o Drink less fluid, if directed by your healthcare provider. o Keep a record of everything you eat and drink. ??? Measure the amount of urine and stool you have each day. ??? Weigh yourself every day, at the same time of day, and in the same kind of clothes. Keep a daily record of your daily weights. ??? Take your temperature every day. Keep a record of the results. ??? Learn to take your own blood pressure (BP). Your healthcare provider can teach you how to correctly measure your BP. Keep a record of your results. Bring the record to your follow-up appointments. Ask your healthcare provider when you should seek emergency medical attention. Your provider will tell you what blood pressure reading is dangerous. ??? Stay away from people who have infections. This includes people with colds, bronchitis, or skin conditions. ??? Practice good personal??hygiene. Wash your hands often. This is especially important if you have a catheter in place when you leave the hospital. Doing so helps keep you safe from infection. ??? Take your medicines exactly as directed. ??? You may need frequent blood and urine tests. These are done to keep track of your kidney function. ?? Follow-up care Follow up with your healthcare provider, or as advised. ?? When to call your healthcare provider Call your??healthcare provider??right away if any of the following occur: ??? Signs of bladder infection, such as urinating more often, burning or pain when you pee, pain above your pubic bone, bloodin your urine, or trouble starting your urine stream ??? Signs of infection around your catheter, such as redness, swelling, warmth, or fluid leaking ??? Rapid weight loss or weight gain, such as 3??pounds or more in 24 hours or 6 pounds or more in 7 days ??? Fever above 100.4?? F ( 38??C ) or as directed by your healthcare provider ??? Chills ??? Muscle aches ??? Night sweats ??? Very little or no urine output ??? Swelling of your hands, legs, or feet ??? Back pain ??? Abdominal (belly) pain ??? Extreme tiredness ?? Last Reviewed Date: 2022 ?? [id number] The [employer]. All rights reserved. This information is not intended as a substitute for professional medical care. Always follow your healthcare professional's instructions. ?? * Aurelia Enciso RN: PERFORM Event Display: Patient Education Leaflets Authored Date: [id number] Caring for Yourself When You Have Kidney Failure ?? [address] Caring for Yourself When You Have Kidney Failure Kidney failure and its treatment will mean changes in your daily life. Whatever changes you need tomake, your healthcare team can help you with them. Your daily life You may wonder how your treatment will fit into the rest of your life. But with some changes, you can live a full life with kidney failure. If you work, talk with your employer about any changes you need to make in your duties or schedule.??You may find that your energy levels go up and down and that you notice new physical problems. If you aren't able to do your daily activities as before, your healthcare provider may suggest treatments or send you to physical therapy. ?? Food, drink, and medicines ??? No matter which treatment you choose, you???ll have some limits on what you eat and drink. A dietitian will help you learn these.??You may need to stay away from foods that are high in salt, potassium, or phosphorus.? Treatment means taking medicines. Some of these you need to take one or more times a day. Others are given to you during treatment or??healthcareprovider??visits. Have a list of the medicines you take. Show it to any healthcare provider you visit. Also check with your??provider??or pharmacist before taking any medicine that is not on the list, including aspirin.??Many medicines are eliminated or processed by the kidneys. Your dosage may have to be adjusted by your??healthcare provider??or pharmacist. Other medicines may harm your kidneys,and you may not be allowed to take them.??This includes IV (intravenous) dye injected during some body scans. ?? Making healthy choices You can make choices about your lifestyle that will help your treatment work better. Exercise may reduce your treatment???s side effects. It can also help you control your weight and blood pressure. Ask your healthcare team which types of exercise are good for you. If you smoke, it???s important that you quit. Smoking narrows (constricts) blood vessels and causesinfections. These are both dangerous to people with kidney failure. Talk with your healthcare team about quitting.?? If you have diabetes or high blood pressure, it's important to control your sugar levels and blood pressure as directed by your healthcare provider. Keep your weight in a normal range for your body. And keep your cholesterol levels controlled too.?? Always wear a medical alert bracelet or necklace. Carry a list of your medicines and your healthcare providers in your wallet or in your smartphone. Have your partner or a close family member do the same. ?? Looking after your health With the right treatment, you should begin to feel better. If you follow all the guidelines you aregiven and still don???t feel well, tell your??healthcare provider. Some changes may need to be madein your treatment. You will need regular checkups with your??provider. ?? Checking in [place] the statements below that are true for you. For each statement you don???t [place], ask a healthcare provider to help you learn what you need to know: ??? I have a list of all the medicines that I take.? I know who to talk to when I need extra help or support.? I know which foods I should eat. I also know how much I should eat. ??? I have talked with a healthcare provider about exercise. ??? I have names and numbers for all my healthcare providers. ??? I know what my insurance covers and what it doesn't. ?? Last Reviewed Date: 2021 ?? 2926-5959 [employer]. All rights reserved. This information is not intended as a substitute for professional medical care. Always follow your healthcare professional's instructions. ?? US Retroperitoneum * [facility] , CIS S: TRANSCRIBE Aura MATTSON, Elisabeth R: VERIFY Alistair MATTSON, Len T: SIGN Event Display: Result: Authored Date: [id number] US Retroperitoneum Comp Reason: Renal Failure. Clinical Question(s): Renal Obstruction. COMPARISON: 03/24/2021. FINDINGS: Right kidney: 11.2 cm in length. No hydronephrosis. Normal parenchymal thickness and echotexture. No stones. No suspicious mass. Left kidney: 11.0 cm in length. No hydronephrosis. Normal parenchymal thickness and echotexture. Nostones. No suspicious mass. Urinary bladder: Incompletely distended, but no evidence of stone, mass, wall thickening or debris. IMPRESSION: Normal kidneys and urinary bladder. No hydronephrosis. I have personally reviewed the images and I agree with this report. WSN: [id number] Ordering Physician: Rickie Brumfield Dictated By: Len Sainz MD Dictated Date/Time: 03/27/22 2:14 pm Reviewed By: Elisabeth Chavarria MD Signed By: Elisabeth Chavarria MD Signed Date/Time: 03/27/22 2:19 pm Transcribed By: ESPERANZA Transcribed Date/Time: 03/27/22 10:50 am Portable XR Chest Views * [facility] , CIS S: TRANSCRIBE Benny Powell MD: VERIFY Event Display: Result: Authored Date: [id number] Chest Portable AP upright Reason: Fever Increased White Count; Clinical Question(s): Pneumonia COMPARISON: 03/24/2021. FINDINGS: LINES AND TUBES: None. LUNGS AND PLEURA: Clear lungs. Normal pulmonary vascularity. No pleural effusion. No pneumothorax. HEART, MEDIASTINUM AND DONAVAN: Heart is normal in size. Normal mediastinal and hilar contour. BONES AND SOFT TISSUES: No acute abnormality. IMPRESSION: No radiographic evidence of an acute cardiopulmonary process. WSN: [id number] Ordering Physician: Rickie Brumfield Dictated By: Benny Powell MD Dictated Date/Time: 03/26/22 10:35 a Reviewed By: Benny Powell MD Signed By: Benny Powell MD Signed Date/Time: 03/26/22 10:35 am Transcribed By: ESPERANZA Transcribed Date/Time: 03/26/22 10:33 am Patient Care team information Care Team Personnel Name: Itzel Cordon RN Position: S RN Member Role: Primary Care Nurse Name: Chiara Barrera RN Position: [facility] RN Member Role: Primary Care Nurse Name: Damir Epperson MD Position: [facility] Renal MD Member Role: Lifetime Consulting Physician Address: Address: [address] [place] [address] [address] [facility], [place], [place] [address] Name: Clara Rodriguez RN Position: [facility] RN Member Role: Primary Care Nurse Name: Sadia Barroso MD Position: Reference Physician Member Role: PCP Address: Address: [address] [place] [id number] Name: *[facility], ED Attending Position: [facility] ED Attendings Patient Name: *[facility] Inpt Attending Position: [facility] ED Medicine MD Name: Pita Maddox Position: [facility] ED TA [facility] Name: Micaela Segundo RN Position: [facility] ED RN W/OE and Tasks Member Role: Patient Care Provider Care Team Related Persons Name: ANGELITA MONTEZ Address: home [address] [place] [id number]
--- OUTSIDE RECORDS SUMMARY | 2022-12-17 15:23 | XMS_ITS | Continuity of Care Document ---
Author Name Unknown Organization [facility] ter Address [address] [place] [address]- Care Team Providers Care Nylon Operator Name Role Phone Chio MATTSON, Sadia Primary Care Physician [phone] Encounter [facility] Date(s): 11/01/22 - 11/02/[address] [address]- Encounter Diagnosis Nausea & vomiting(Final) - 11/01/22 Discharge Disposition: A-D/C Home Attending Physician: Etta Dunn MD Admitting Physician: Etta Dunn MD Referring Physician: Not on Staff, Referring [...] 0 Refills, Maintenance, 03/27/22 8:54:00 EST, Tablet, [facility], Partial fill upon patient request if the prescription is for a schedule II opioid drug.... Start Date: 03/27/22 Status: Ordered Mirena 52 mg intrauteral device 1 each = 52 mg, Intrauterine, Once, # 1 each, 0 Refills, Soft Stop Start Date: 07/20/12 Status: Ordered ondansetron 4 mg oral tablet 1 tablet = 4 mg, By Mouth, Every 8 hours, # 12 tablet, 0 Refills, Maintenance, 03/28/22 10:01:00 EST, Tablet, [facility], Partial fill upon patient request [...] Date: 03/28/22 Stop Date: 04/27/22 Status: Ordered Reglan 10 mg oral tablet 1 tablet = 10 mg, By Mouth, 4 times a day, for 7 days, # 28 tablet, 0 Refills, Acute 11/08/22 23:13:00 EDT, 11/01/22 23:13:00 EDT, Tablet, [id number], Partial fill upon patient request if theprescription is for a schedule II opioid drug., 164... Start Date: 11/01/22 Stop Date: 11/08/22 Status: Ordered Suboxone 12 mg-3 mg sublingual film 1 film, Sublingual, Daily, dissolve under the tongue, 0 Refills, Maintenance, 03/24/21 3:17:00 EST,Film, Partial fill upon patient request if the prescription is for a schedule II opioid drug. Start Date: 03/24/21 Status: Ordered Vital Signs Most recent to oldest [Reference Range]: 1 2 3 Height 164 cm (11/01/22 11:57 PM) 164 cm (11/01/22 10:54 PM) 164 cm (11/01/22 9:01 PM) Weight 54.5 kg (11/01/22 11:57 PM) 54.5 kg (11/01/22 10:54 PM) 54.5 kg (11/01/22 9:01 PM) Oxygen Saturation [94-100 %] 99 % (11/02/22 1:43 AM) 99 % (11/01/22 11:57 PM) 100 % (11/01/22 9:01 PM) Pulse Rate [55-90 bpm] 78 bpm (11/02/22 1:43 AM) 69 bpm (11/01/22 11:57 PM) 84 bpm (11/01/22 9:01 PM) Body Mass Index [18.5-24.99 kg/m2] 20.26 kg/m2 (11/01/22 11:57 PM) 20.26 kg/m2 (11/01/22 9:01 PM) Blood Pressure [90-138/55-84 mm Hg] 104/71mm Hg (11/02/22 1:43 AM) 137/75mm Hg (11/01/22 11:57 PM) 115/64mm Hg (11/01/22 9:01 PM) Respiratory Rate [16-30 br/min] 15 br/min *L* (11/02/22 1:43 AM) 16 br/min (11/01/22 11:57 PM) 16 br/min (11/01/22 9:01 PM) Temperature [96.8-100.4 DegF] 98.5 DegF (11/02/22 1:43 AM) 98.4 DegF (11/01/22 11:01 PM) 98.4 DegF (11/01/22 9:01 PM) Mode of Delivery (Oxygen) Room air (11/02/22 1:43 AM) Room air (11/01/22 11:57 PM) Room air (11/01/22 9:01 PM) Blood pressure sites Arm, right (11/02/22 1:43 AM) Arm, left (11/01/22 11:57 PM) Arm, right (11/01/22 9:01 PM) Temperature Route Oral (11/02/22 1:43 AM) Oral (11/01/22 11:01 PM) Oral (11/01/22 9:01 PM) Dry Weight 54.5 kg (11/01/22 11:57 PM) 54.5 kg (11/01/22 10:54 PM) 54.5 kg (11/01/22 9:01 PM) Weight Obtained Via Patient/family state d (11/01/22 9:01 PM) Dry Weight Obtained Via Patient/family s tated (11/01/22 9:01 PM) EKG study * Event Display: ECG 12-Lead Authored Date: Please click on pdf link to open report * Event Display: ECG 12-Lead Authored Date: [id number] Ventricular Rate: 71 BPM Atrial Rate: 71 BPM P-R Interval: 136 ms QRS Duration: 84 ms Q-T Interval: 396 ms QTC Calculation(Bazett): 430 ms P [place]: 76 degrees R [place]: 70 degrees T [place]: 50 degrees Normal sinus rhythm Normal ECG When compared with ECG of 25-MAR-2022 10:51, No significant change was found Confirmed by LILY LITTLE ([id number]) on 11/02/2022 8:09:57 AM [place]: LILY LITTLE Note * Marcy Stout: PERFORM Event Display: Patient Education Leaflets Authored Date: [id number] Metoclopramide Oral Tablet ?? 67114-55 Metoclopramide Oral Tablet Brands: Reglan Uses This medicine is used for the following purposes: ??? abnormal bowel function ??? nausea and vomiting ??? stomach acid reflux ?? Instructions You may break or cut the pill if necessary. Take the medicine 30 minutes before a meal. Store at room temperature away from heat, light, and moisture. Do not keep in the bathroom. This medicine can reduce the absorption of other medicines. Talk to your doctor or pharmacist aboutthe best times to use this product. Drug interactions can change how medicines work or increase risk for side effects. Tell your healthcare providers about all medicines taken. Include prescription and [id number] medicines, vitamins, and herbal medicines. Speak with your doctor or pharmacist before starting or stopping any medicine. Tell your doctor if symptoms do not get better or if they get worse. If you need to stop this medicine, your doctor may wish to gradually reduce the dosage before stopping. This medicine may affect your blood sugar levels. If you have diabetes, talk to your doctor before changing the dose of your diabetes medicine. Keep all appointments for medical exams and tests while on this medicine. ?? Cautions This medicine is not recommended for use in children younger than 18. Tell your doctor and pharmacist if you ever had an allergic reaction to a medicine. This medicine is associated with a rare but very serious medical condition. Please speak with your doctor about symptoms you should look out for while on this medicine. Notify your doctor immediatelyif you develop those symptoms. Do not use the medication any more than instructed. If possible, avoid using with alcohol, marijuana, or other medicines that can cause dizziness or drowsiness. These include allergy/cold products, muscle relaxers, sleep aids, and pain relievers. Your ability to stay alert or to react quickly may be impaired by this medicine. Do not drive or operate machinery until you know how this medicine will affect you. Tell the doctor or pharmacist if you are , planning to be , or . Do not share this medicine with anyone who has not been prescribed this medicine. Some patients have serious side effects from this medicine. Ask your pharmacist to show you the information from the Food and Drug Administration (FDA) and discuss it with you. ?? Side Effects The following is a list of some common side effects from this medicine. Please speak with your doctor about what you should do if you experience these or other side effects. ??? agitated feeling or trouble sleeping ??? diarrhea ??? dizziness or drowsiness ??? lack of energy and tiredness ??? headaches Call your doctor or get medical help right away if you notice any of these more serious side effects: ??? breast pain or swelling ??? confusion ??? depression or feeling sad ??? swelling of the legs, feet, and hands ??? face appearing mask-like ??? high fever ??? hallucinations (unusual thoughts, seeing or hearing things that are not real) ??? fast or irregular heart beats ??? menstruation changes (missed or fewer periods) ??? uncontrollable movement of face, tongue, arms or legs ??? muscle aches, spasms or abnormal movements ??? muscle trembling ??? shakiness ??? suicidal thoughts A few people may have an allergic reaction to this medicine. Symptoms can include difficulty breathing, skin rash, itching, swelling, or severe dizziness. If you notice any of these symptoms, seek medical help quickly. ?? Extra Please speak with your doctor, nurse, or pharmacist if you have any questions about this medicine. ?? [email or web address]/90 IMPORTANT NOTE: This document tells you briefly how to take your medicine, but it does not tell youall there is to know about it. Your doctor or pharmacist may give you other documents about your medicine. Please talk to them if you have any questions. Always follow their advice. There is a more complete description of this medicine available in Surinamese. Scan this code on your smartphone or tablet or use the web address below. You can also ask your pharmacist for a printout. If you have any questions, please ask your pharmacist. The display and use of this drug information is subject to Terms of Use. Copyright(c) 2022 [employer]. ?? The [employer]. All rights reserved. This information is not intended as a substitute for professional medical care. Always follow your healthcare professional's instructions. ?? * Marcy Stout: PERFORM Event Display: Patient Education Leaflets Authored Date: [id number] [facility] - If you need a Doctor or Clinic ?? 34 If You Need a Doctor or Clinic ?? Call [facility] PCP Assignment Line to help you find a doctor:?? [phone] ?? Clinics in [place], [place] For a full list of clinics:? [email or web address] ?? [facility]? [address] [phone] [facility] Internal medicine Clinic?[phone] [place] [address]?[address][phone] [facility]?[address][phone] [facility]?[address] [phone] [facility]?[address][phone] [facility]?[address][phone] [facility]?[address] [phone] [facility]? [address][phone] 4 [facility] clinical social worker?[address][phone] [facility]?[address][phone] [facility]?[address][phone] [facility]?[address][phone] [facility]? [address][phone] [facility]?[address][phone] ? * Shahida Rincon DO: PERFORM Event Display: Patient Education Leaflets Authored Date: [id number] Marijuana Use Disorder ?? [id number] Marijuana Use Disorder Marijuana is the most widely used illegal drug in the [place] Recently, it's increasingly legal for recreational and medicinal use in many states. It's called by various names such as pot, weed, blunts,grass, reefer, ganja, hash, or hashish. It's usually smoked, but it can be mixed with foods or brewed as a tea. Recently a practice known as dabbing or smoking wax has become popular. This means smoking highly concentrated extracts of the marijuana plant. The result is more side effects. Sometimes, marijuana can be illegally sold with PCP (alyson dust) or amphetamine mixed in it. These illegaldrugs can cause other harmful side effects. If you're using marijuana with other illegal or legal drugs, the type and severity of side effects will vary. Marijuana can cause the following effects: ??? Changes in mood, such as stimulated, happy, drowsy, depressed, or paranoid ??? Visions (hallucinations) ??? Increased heart rate and blood pressure ??? Red eyes ??? Increased appetite ??? Time distortion, trouble concentrating, or memory problems ??? Lung damage. This is similar to cigarettes with chronic cough, wheezing, frequent colds, and bronchitis. ??? Rarely, collapse of the lung (pneumothorax) ??? Decreased sperm count ??? Dizziness, vertigo, and possibly slurred speech ??? Vomiting.Even though marijuana is used to treat nausea and vomiting, some chronic daily users have the opposite effect. They vomit uncontrollably for long periods of time (cannabinoid hyperemesis syndrome). You can become psychologically dependent on marijuana. That means the craving to use the drug is emotional or psychological rather than from physical withdrawal. Is marijuana running your life? Here are some of the signs of marijuana use disorder: ??? Relying on marijuana to feel good, forgetproblems, deal with stress or to relax ??? Wanting to be alone most of the time or only with otherswho use drugs ??? Losing interest in things that used to be important ??? Changes in school or job performance or attendance ??? Spending a lot of time thinking about how to get marijuana ??? Stealing or selling your things so you can buy marijuana ??? Unable to stop using even though you may want to quit ??? Increasing anxiety, anger,??or depression ??? Sleeping too much, or changes in eating habits (weight loss or gain) ??? Needing to use more to get the same effect ?? Home care These suggestions will help you manage marijuana use disorder: ??? Once you have become addicted toany drug, quitting is hard to do. Most people find they can't quit without help. So don???t try to do this alone. Talk to someone you trust who can support you. Seek professional help. ??? Stay away from people and places where drugs are used. That only increases the temptation to use. ?? Follow-up care Follow up with your healthcare provider, or as advised. For more information or a referral to a treatment center in your area, contact: ??? Substance Abuseand Mental Health Services Administration (SAMHSA) Treatment Locations at https://www.samhsa.gov/find-treatment ??? National [place] on Alcoholism and Drug Dependence at http://ncaddms.org/ or call 810-841-8498 ??? Marijuana Anonymous at marijuana-anonymous.org or call 358-234-0411? When to get medical care ??Call your healthcare provider right away if any of these occur: ??? You believe you're addicted to marijuana and want to stop using it. ??? You feel extreme depression, fear, anxiety, or anger toward yourself or others. ??? You feel out of control. ??? You feel that you may try to harm yourself or another. ??? You have chest pain or shortness of breath. ?? Last Reviewed Date: 2021 ?? 1493-2581 [employer]. All rights reserved. This information is not intended as a substitute for professional medical care. Always follow your healthcare professional's instructions. ?? Patient Care team information Care Team Personnel Name: Itzel Cordon RN Position: [facility] RN Member Role: Primary Care Nurse Name: Chiara Barrera RN Position: [facility] RN Member Role: Primary Care Nurse Name: Damir Epperson MD Position: [facility] Renal MD Member Role: Lifetime Consulting Physician Address: Address: [address] [facility], [place] [address]- [place] Name: Sadia Barroso MD Position: Reference Physician Member Role: PCP Address: Address: [address] [place] [id number]- Name: Marcy Stout Position: [facility] Associate Professional Member Role: ED Physician Hearing Aid Assistant Address: Address: [address] [place] [address]- Name: Joleen Patel RN Position: [facility] ED RN W/OE and Tasks Member Role: Patient Care Provider Name: Etta Dunn MD Position: [facility] ED Medicine MD Member Role: ED Attending Physician Address: Address: [address] [place] [id number]- Care Team Related Persons Name: ANGELITA MONTEZ Address: home [address] [place] [id number]
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
[2022-12-17 15:36] VITALS: BP 116/68; PULSE 111; O2SAT 97
== END 2022-12-17 16:15 | disposition home or self-care (01) ==
LOC: HO.HCC 15:22
PROVIDERS: PCP Internal Medicine; Visit Provider Nurse Practitioner Psychiatric/Mental Health
DX: F11.21 Opioid dependence, in remission (principal)
CPT/HCPCS: 99204

== ENCOUNTER 2023-01-14 14:26 | Outpatient (AMB) | payer OTHER, SELFPAY ==
--- NOTE | 2023-01-14 14:29 | MHC.OFFVIS ---
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 Taking 12mg Suboxone daily. Denies side effects from medication, or concerns with current dose. Getting ready for Halloween with her children. Grandson just turned 1, family excited to take him trick or treating. Stable with recovery, denies cravings. Lab work reviewed with patient. Review of Systems Const Reports as per HPI and Reports no additional complaints Physical Exam Vital Signs: Last Vital Signs Pulse 76 01/14/23 14:34 BP 118/78 01/14/23 14:34 Pulse Ox 97 01/14/23 14:34 Oxygen Delivery Method Room Air 01/14/23 14:34 Const General: cooperative, healthy appearing and no acute distress Nutritional Appearance: average body habitus Orientation/consciousness: patient oriented x3 Resp Effort & Inspection: normal respiratory effort Skin General skin exam: no rashes or lesions noted Neuro General: patient oriented x3 Psych Appearance: grossly normal and well kempt Affect: normal affect Attitude: cooperative Insight: Good insight present (Psych) Judgement: Good judgement present (Psych) Assessment & Plan Assessment & Plan (1) Opioid use disorder, moderate, in sustained remission: Code(s): F11.21 - Opioid dependence, in remission Plan: Continue suboxone at current dose. Follow up in 4 weeks. Encouraged to call [facility] with any questions or concerns. Plan reviewed with KOSTA Jones Medications: Refilled buprenorphine-naloxone 12-3 mg (Suboxone) 1 film sublingual DAILY 30 ea 0RF Coding Level of Care Code Est Pt Level 3 (97210) Diagnoses Opioid use disorder, moderate, in sustained remission F11.21
[2023-01-14 14:34] VITALS: BP 118/78; PULSE 76; O2SAT 97
== END 2023-01-14 14:43 | disposition home or self-care (01) ==
PROVIDERS: PCP Internal Medicine; Visit Provider Nurse Practitioner Psychiatric/Mental Health
DX: F11.21 Opioid dependence, in remission (principal)
CPT/HCPCS: 99213

== ENCOUNTER → 2023-01-14 14:26 | Outpatient (BNVA) | payer OTHER, SELFPAY | PROVIDERS: PCP Internal Medicine; Visit Provider Nurse Practitioner Psychiatric/Mental Health | DX: Z79.899 Other long term (current) drug therapy (principal) ==

== ENCOUNTER 2023-02-11 14:33 | Outpatient (AMB) | payer OTHER, SELFPAY ==
--- NOTE | 2023-02-11 14:35 | A.OFFVIS_ITS ---
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 Reports her month has gone well She has to work [employer]- but excited that she has Matt and New Years Day off. Planning on buying [employer] for family for [employer] dinner. Reports no concerns for recovery- has been in recovery for 15 years. Review of Systems Const Reports as per HPI Physical Exam Vital Signs: Last Vital Signs Pulse 94 02/11/23 14:40 BP 122/70 02/11/23 14:40 Pulse Ox 96 02/11/23 14:40 Oxygen Delivery Method Room Air 02/11/23 14:40 Const General: cooperative and healthy appearing Resp Effort & Inspection: normal respiratory effort Skin General skin exam: no rashes or lesions noted Psych Appearance: grossly normal Mental Status: mental status grossly normal Speech and movement: Normal speech and movement present Affect: normal affect Attitude: cooperative Assessment & Plan Assessment & Plan (1) Opioid use disorder, moderate, in sustained remission: Code(s): F11.21 - Opioid dependence, in remission Plan: Continue suboxone at current dose. Follow up in 4 weeks. Encouraged to call [facility] with any questions or concerns. Plan reviewed with KOSTA Jones Medications: Refilled buprenorphine-naloxone 12-3 mg (Suboxone) 1 film sublingual DAILY 30 ea 0RF Coding Level of Care Code Est Pt Level 3 (06399) Diagnoses Opioid use disorder, moderate, in sustained remission F11.21
[2023-02-11 14:40] VITALS: BP 122/70; PULSE 94; O2SAT 96
== END 2023-02-11 14:53 | disposition home or self-care (01) ==
PROVIDERS: PCP Internal Medicine; Visit Provider Nurse Practitioner Psychiatric/Mental Health
DX: F11.21 Opioid dependence, in remission (principal)
CPT/HCPCS: 99213

== ENCOUNTER → 2023-02-11 14:33 | Outpatient (BNVA) | payer OTHER, SELFPAY | PROVIDERS: PCP Internal Medicine; Visit Provider Nurse Practitioner Psychiatric/Mental Health | DX: Z79.899 Other long term (current) drug therapy (principal) ==

== ENCOUNTER 2023-03-12 09:07 | Outpatient (AMB) | payer OTHER, SELFPAY ==
[2023-03-12 09:15] VITALS: BP 130/80; PULSE 79; O2SAT 96
--- NOTE | 2023-03-12 09:15 | A.OFFVIS_ITS ---
Intake Vital Signs 03/12/23 09:15 BP 130/80 Blood Pressure Location Lt brachial Position Sitting Pulse 79 Pulse Source Pulse Oximeter Pulse Oximetry (%) 96 Oxygen Delivery Method Room Air Intake Visit Reasons: mat visit Allergies doxycycline [DOXYCYCLINE] Allergy (Mild, Unverified 02/11/23 14:41) RASH terbinafine [TERBINAFINE] Allergy (Mild, Unverified 02/11/23 14:41) RASH HPI mat visit HPI Details Patient presents for follow up Currently prescribed Suboxone 12mg QD Tolerating dose, denies any side effects No questions or concerns at this time Review of Systems Const Reports as per HPI Physical Exam Vital Signs: Last Vital Signs Pulse 79 03/12/23 09:15 BP 130/80 03/12/23 09:15 Pulse Ox 96 03/12/23 09:15 Oxygen Delivery Method Room Air 03/12/23 09:15 Const General: cooperative and healthy appearing Resp Effort & Inspection: normal respiratory effort Skin General skin exam: no rashes or lesions noted Psych Appearance: grossly normal Mental Status: mental status grossly normal Speech and movement: Normal speech and movement present Affect: normal affect Attitude: cooperative Assessment & Plan Assessment & Plan (1) Opioid use disorder, moderate, in sustained remission: Code(s): F11.21 - Opioid dependence, in remission Plan: * continue suboxone at current dose * follow up 8 weeks (patient has higher copay now for visits) Medications: Refilled buprenorphine-naloxone 12-3 mg (Suboxone) 1 film sublingual DAILY 30 ea 1RF Coding Level of Care Code Est Pt Level 3 (92592) Diagnoses Opioid use disorder, moderate, in sustained remission F11.21
== END 2023-03-12 10:07 | disposition home or self-care (01) ==
PROVIDERS: PCP Internal Medicine; Visit Provider Nurse Practitioner Psychiatric/Mental Health
DX: F11.21 Opioid dependence, in remission (principal)
CPT/HCPCS: 99213

== ENCOUNTER → 2023-03-12 09:07 | Outpatient (BNVA) | payer OTHER, SELFPAY | PROVIDERS: PCP Internal Medicine; Visit Provider Nurse Practitioner Psychiatric/Mental Health ==

== ENCOUNTER 2023-05-06 14:14 | Outpatient (AMB) | payer OTHER, SELFPAY ==
--- NOTE | 2023-05-06 14:21 | A.OFFVISCC_ITS ---
Intake Vital Signs 05/06/23 14:26 BP 118/70 Blood Pressure Location Lt radial Position Sitting Pulse 93 Pulse Source Pulse Oximeter Pulse Oximetry (%) 96 Oxygen Delivery Method Room Air Intake Visit Reasons: mat visit Intake Note: the patient presents for a mat visit Director Safety Council Required: No Allergies doxycycline [DOXYCYCLINE] Allergy (Mild, Unverified 05/06/23 14:27) RASH terbinafine [TERBINAFINE] Allergy (Mild, Unverified 05/06/23 14:27) RASH Do you need a note to return to daycare/school/sports/work: No HPI mat visit HPI Details Patient presents for follow up Currently prescribed Suboxone 12mg QD Has not seen her PCP in some time. Reinforced importance of checking in and scheduling screenings -needs to schedule, will be goal for nex t visit Review of Systems Const Reports as per HPI and Reports no additional complaints Physical Exam Vital Signs: Last Vital Signs Pulse 93 05/06/23 14:26 BP 118/70 05/06/23 14:26 Pulse Ox 96 05/06/23 14:26 Oxygen Delivery Method Room Air 05/06/23 14:26 Const General: cooperative and healthy appearing Resp Effort & Inspection: normal respiratory effort Skin General skin exam: no rashes or lesions noted Psych Appearance: grossly normal Mental Status: mental status grossly normal Speech and movement: Normal speech and movement present Affect: normal affect Attitude: cooperative Assessment & Plan Assessment & Plan (1) Opioid use disorder, moderate, in sustained remission: Code(s): F11.21 - Opioid dependence, in remission Plan: * continue suboxone at current dose * follow up 8 weeks Medications: Refilled buprenorphine-naloxone 12-3 mg (Suboxone) 1 film sublingual DAILY 30 ea 1RF Coding Level of Care Code Est Pt Level 3 (12359) Diagnoses Opioid use disorder, moderate, in sustained remission F11.21
[2023-05-06 14:26] VITALS: BP 118/70; PULSE 93; O2SAT 96
== END 2023-05-06 14:52 | disposition home or self-care (01) ==
PROVIDERS: PCP Internal Medicine; Visit Provider Nurse Practitioner Psychiatric/Mental Health
DX: F11.21 Opioid dependence, in remission (principal)
CPT/HCPCS: 99213

== ENCOUNTER → 2023-05-06 14:14 | Outpatient (BNVA) | payer OTHER, SELFPAY | PROVIDERS: PCP Internal Medicine; Visit Provider Nurse Practitioner Psychiatric/Mental Health | DX: F11.21 Opioid dependence, in remission (principal) ==

== ENCOUNTER 2023-07-01 14:27 | Outpatient (AMB) | payer OTHER, SELFPAY ==
--- NOTE | 2023-07-03 13:32 | A.OFFVISCC_ITS ---
Intake Intake Visit Reasons: mat visit Allergies doxycycline [DOXYCYCLINE] Allergy (Mild, Unverified 05/06/23 14:27) RASH terbinafine [TERBINAFINE] Allergy (Mild, Unverified 05/06/23 14:27) RASH HPI mat visit HPI Details Patient presents for follow up Currently prescribed Suboxone 12mg daily Still working [employer] Happy to share that she has scehduled appt with her PCP! Discussed self care Review of Systems Const Reports as per HPI and Reports no additional complaints Physical Exam Const General: cooperative and healthy appearing Resp Effort & Inspection: normal respiratory effort Skin General skin exam: no rashes or lesions noted Psych Appearance: grossly normal Mental Status: mental status grossly normal Speech and movement: Normal speech and movement present Affect: normal affect Attitude: cooperative Assessment & Plan Assessment & Plan (1) Opioid use disorder, moderate, in sustained remission: Code(s): F11.21 - Opioid dependence, in remission Plan: * continue suboxone at current dose * follow up 8 weeks --telehealth Coding Level of Care Code Est Pt Level 3 (04793) Diagnoses Opioid use disorder, moderate, in sustained remission F11.21
== END 2023-07-01 14:57 | disposition home or self-care (01) ==
PROVIDERS: PCP Internal Medicine; Visit Provider Nurse Practitioner Psychiatric/Mental Health
DX: F11.21 Opioid dependence, in remission (principal)
CPT/HCPCS: 99213

== ENCOUNTER → 2023-07-01 14:27 | Outpatient (BNVA) | payer OTHER, SELFPAY | PROVIDERS: PCP Internal Medicine; Visit Provider Nurse Practitioner Psychiatric/Mental Health | DX: F11.21 Opioid dependence, in remission (principal) ==

== ENCOUNTER 2023-08-21 11:22 | Outpatient (AMB) | payer OTHER, SELFPAY ==
--- NOTE | 2023-08-21 11:25 | A.OFFVISCC_ITS ---
Intake Visit Reasons: MAT Allergies doxycycline [DOXYCYCLINE] Allergy (Mild, Unverified 05/06/23 14:27) RASH terbinafine [TERBINAFINE] Allergy (Mild, Unverified 05/06/23 14:27) RASH HPI HPI MAT: Details: Patient presents for follow up via telehealth Reporting doing well had to reschedule her PCP appt no issues related to suboxone Review of Systems Const Reports as per HPI and Reports no additional complaints Telehealth Telehealth Telehealth Platform: Telephone Location of provider rendering services: practice address Location of patient: address on file Patient Identification confirmed using: Name, : Yes Telehealth method: voice only Patient verbally consented to treatment: Yes Minutes spent on Phone/Video with Pt.: 15 Assessment & Plan Assessment & Plan (1) Opioid use disorder, moderate, in sustained remission: Code(s): F11.21 - Opioid dependence, in remission Category: Medical Plan: * continue suboxone at current dose * follow up 3 months * encouraged to call office with any questions or concerns Medications: Refilled buprenorphine-naloxone 12-3 mg (Suboxone) 1 film sublingual DAILY 30 ea 2RF
== END 2023-08-21 11:34 | disposition home or self-care (01) ==
PROVIDERS: PCP Internal Medicine; Visit Provider Nurse Practitioner Psychiatric/Mental Health
DX: F11.21 Opioid dependence, in remission (principal)
CPT/HCPCS: 99213

== ENCOUNTER → 2023-08-21 11:22 | Outpatient (BNVA) | payer OTHER, SELFPAY | PROVIDERS: PCP Internal Medicine; Visit Provider Nurse Practitioner Psychiatric/Mental Health ==

== ENCOUNTER 2023-11-13 12:52 | Outpatient (AMB) | payer OTHER, SELFPAY ==
--- NOTE | 2023-11-13 13:00 | A.OFFVISCC_ITS ---
Intake Visit Reasons: MAT Allergies doxycycline [DOXYCYCLINE] Allergy (Mild, Unverified 05/06/23 14:27) RASH terbinafine [TERBINAFINE] Allergy (Mild, Unverified 05/06/23 14:27) RASH HPI HPI MAT: Details: Patient presents for follow up Currently prescribed Suboxone 12mg QD PCP appt to be scheduled soon No issues at this time Review of Systems Const Reports as per HPI and Reports no additional complaints Physical Exam Const General: cooperative and healthy appearing Skin General skin exam: no rashes or lesions noted Psych Appearance: grossly normal Mental Status: mental status grossly normal Speech and movement: Normal speech and movement present Affect: normal affect Attitude: cooperative Assessment & Plan Assessment & Plan (1) Opioid use disorder, moderate, in sustained remission: Code(s): F11.21 - Opioid dependence, in remission Category: Medical Plan: * continue suboxone at current dose * follow up 3 months * encouraged to call office with any questions or concerns Medications: Refilled buprenorphine-naloxone 12-3 mg (Suboxone) 1 film sublingual DAILY 90 ea 0RF
== END 2023-11-13 13:17 | disposition home or self-care (01) ==
PROVIDERS: PCP Internal Medicine; Visit Provider Nurse Practitioner Psychiatric/Mental Health
DX: F11.21 Opioid dependence, in remission (principal)
CPT/HCPCS: 99213

== ENCOUNTER → 2023-11-13 12:52 | Outpatient (BNVA) | payer OTHER, SELFPAY | PROVIDERS: PCP Internal Medicine; Visit Provider Nurse Practitioner Psychiatric/Mental Health ==

== ENCOUNTER → 2024-02-05 13:06 | Outpatient (BNVA) | payer OTHER, SELFPAY | PROVIDERS: PCP Internal Medicine; Visit Provider Nurse Practitioner Psychiatric/Mental Health ==

== ENCOUNTER 2024-05-25 13:58 | Outpatient (AMB) | payer OTHER, SELFPAY ==
--- NOTE | 2024-05-25 14:28 | A.OFFVISCC_ITS ---
Intake Visit Reasons: MAT Office Allergies doxycycline [DOXYCYCLINE] Allergy (Mild, Unverified 05/06/23 14:27) RASH terbinafine [TERBINAFINE] Allergy (Mild, Unverified 05/06/23 14:27) RASH HPI HPI MAT Office: Details: Patient presents for follow up Currently prescribed Suboxone 12mg Denies any issues related to recovery still working FT Review of Systems Const Reports as per HPI and Reports no additional complaints Physical Exam Const General: cooperative and healthy appearing Skin General skin exam: no rashes or lesions noted Psych Appearance: grossly normal Mental Status: mental status grossly normal Speech and movement: Normal speech and movement present Affect: normal affect Attitude: cooperative Assessment & Plan Assessment & Plan (1) Opioid use disorder, moderate, in sustained remission: Code(s): F11.21 - Opioid dependence, in remission Category: Medical Plan: * continue suboxone at current dose * follow up 3 months * encouraged to call office with any questions or concerns Medications: Refilled buprenorphine-naloxone 12-3 mg (Suboxone) 1 film sublingual DAILY 90 ea 0RF
--- OUTSIDE RECORDS SUMMARY | 2024-05-25 16:33 | XMS_ITS | Clinical Summary ---
[facility] Organization [facility] Address [address] [place] [address] Care Team Providers Care Maxillofacial Prosthodontist Name Role Phone Sadia Barroso MD Primary Care Provider [phone] Allergies No known active allergies Active Problems Problem Noted Date Diagnosed Date Palpitation 05/01/2007 Overview (03/19/2024): Echo (-), likely related too anxiety Holter (p) Anxiety 05/01/2007 Calculus of gallbladder 01/24/2006 Immunizations Name Administration Dates Next Due HPV, Quadrivalent 05/09/2007,12/04/2006,10/02/19 07 PPD Test 10/31/2005,10/26/2005 Td Tetanus diptheria (Tdvax) 7yo and older 08/01 Tdap Tetanus diptheria acell ular pertussis (Boostrix; Adacel) 7yo and older 07/12/2010 Surgical History Surgery Date Site/Laterality Comments CHOLECYSTECTOMY PROCEDURE: LAPAROSCOPIC CHOLECYSTECT; COMMENT: 02/27 Medical History Medical History Date Comments Depression 05/01/2007 DX:Depression Anxiety 05/01/2007 DX:Anxiety Family History Medical History Relation Name Comments Heart attack Aunt 1 1st at age 61, from [place] at age 63 Other: ETOH, liver disease Father Other: leukemia Maternal Grandmother Heart attack Paternal Grandfather in his 60 Relation Name Status Comments Aunt 1 Aunt 2 Father Maternal Grandmother Paternal Grandfather Social History Tobacco Use Types Packs/Day Years Used Date Smoking Tobacco: Every Day Alcohol Use Standard Drinks/Week Comments No 0 (1 standard drink = 0.6 oz pur e alcohol) Comments Unknown Sex and Gender Information Value Date Recorded Sex Assigned at Not on file Legal Sex Female 9:10 PM EST Gender Identity Not on file Sexual Orientation Not on file Obstetrics History Plan of Treatment Health Maintenance Due Date Last Done Comments Breast Cancer Screening 1982 Hepatitis B Vaccines (1 of 3 - 19+ 3-dose series) 2001 Pneumococcal Vaccine: Pediatrics (0 to 5 Years) and At-Risk Patients (6 to 64 Years) (1 of 2 - PCV) 2001 Cervical Cancer Screening: P ap Smear 06/11/2013 06/11/2010 DTaP,Tdap,and Td Vaccines (3 - Td or Tdap) 07/12/2020 07/12/2010, 08/01/2005 Depression Screening 02/24/2022 HIV Screening 02/24/2022 Hepatitis C Screening 02/24/2022 Social Influencers of Health Screening 02/24/2022 COVID-19 Vaccine (2023-2 5 season) 2023 Influenza Vaccine (#1) 2023 HPV Vaccines Completed 05/09/2007, 12/04/2006, 10/01/2006 HIB Vaccines Aged Out No longer eligi ble based on patient's age to complete this topic Hepatitis A Vaccines Aged Out No long er eligible based on patient's age to complete this topic IPV Vaccines Aged Out No longer eligi ble based on patient's age to complete this topic MMR Vaccines Aged Out No longer eligi ble based on patient's age to complete this topic Meningococcal ACWY Vaccine Aged Out N o longer eligible based on patient's age to complete this topic Meningococcal B Vacine Aged Out No lo nger eligible based on patient's age to complete this topic RSV Immunization Patients Under 20 months Aged Out No longer eligible b ased on patient's age to complete this topic Varicella Vaccines Aged Out No longer eligible based on patient's age to complete this topic Procedures Procedure Name Priority Date/Time Associated Diagnosis Comments PAP SMEAR Routine 06/11/2010 from Last 3 Months or Most Recently Relevant to Health Maintenance Results * Hm Pap Smear (06/11/2010) HM Pap smear no interpretation , abstracted Historical Provider MD HEALTH MAINTENANCE Final Result from Last 3 Months or Most Recently Relevant to Health Maintenance Care Teams Maxillofacial Prosthodontist Relationship Specialty Start Date End Date Sadia Barroso MD [address] [place] [address] [facility] - General 10/25/05
--- OUTSIDE RECORDS SUMMARY | 2024-05-25 16:33 | XMS_ITS | Clinical Summary ---
Author Organization [facility] Facility Address [address] [address] Care Team Providers Care Air Brush Artist Name Role Phone Unavailable Primary Care Provider Unavailabl e Social History Tobacco Use Types Packs/Day Years Used Date Smoking Tobacco: Never Assessed Comments Unknown Sex and Gender Information Value Date Recorded Sex Assigned at Not on file Legal Sex Female 10:29 AM EST Gender Identity Not on file Sexual Orientation Not on file Plan of Treatment Health Maintenance Due Date Last Done Comments Hepatitis B Vaccine (1 of 3 - 19+ 3-dose series) 2001 Influenza Vaccine (#1) 2023 Pneumococcal Vaccine: Pediat rics (0 to 5 Years) and At-Risk Patients (6 to 64 Years) Aged Out No longer eligi ble based on patient's age to complete this topic Insurance MEDICAID
== END 2024-05-25 14:31 | disposition home or self-care (01) ==
PROVIDERS: PCP Internal Medicine; Visit Provider Nurse Practitioner Psychiatric/Mental Health
DX: F11.21 Opioid dependence, in remission (principal)
CPT/HCPCS: 99213

== ENCOUNTER 2024-08-24 14:33 | Outpatient (AMB) | payer OTHER, SELFPAY ==
[2024-08-24 14:42] VITALS: PULSE 132; O2SAT 99
--- NOTE | 2024-08-24 14:42 | MHC.OFFVIS ---
Vital Signs 08/24/24 14:42 Weight 129 lb Pulse 132 H Pulse Source Pulse Oximeter Pulse Oximetry (%) 99 Oxygen Delivery Method Room Air Intake Visit Reasons: MAT Allergies doxycycline [DOXYCYCLINE] Allergy (Mild, Verified 08/24/24 14:43) RASH terbinafine [TERBINAFINE] Allergy (Mild, Verified 08/24/24 14:43) RASH HPI HPI MAT: Details: She is doing well. She gets 90 d supply at a time from insurance. She has no complaints. Review of Systems Const All systems reviewed & are unremarkable except as noted in HPI and below Physical Exam Vital Signs: Last Vital Signs Pulse 132 H 08/24/24 14:42 Pulse Ox 99 08/24/24 14:42 Oxygen Delivery Method Room Air 08/24/24 14:42 Const General: cooperative Assessment & Plan Assessment & Plan (1) Opioid use disorder, moderate, in sustained remission: Comment: She is doing well Code(s): F11.21 - Opioid dependence, in remission Category: Medical Plan: Continue Suboxone See in 90 days. Medications: New buprenorphine-naloxone 12-3 mg (Suboxone) 1 film sublingual Q24H 90 ea 0RF 90 days Coding Level of Care Code Est Pt Level 3 (13779) Diagnoses Opioid use disorder, moderate, in sustained remission F11.21
--- OUTSIDE RECORDS SUMMARY | 2024-08-24 15:49 | XMS_ITS | Clinical Summary ---
Author Organization [facility] Facility Address [address] [address] Care Team Providers Care Saxophone Assembler Name Role Phone Unavailable Primary Care Provider [...] - 19+ 3-dose series) 2001 Influenza Vaccine (Season Ended) 2024 Pneumococcal Vaccine: Peds ( 0 to 5 Years) and At-Risk Patients (6 to 49 Years) Aged Out No longer eligible b ased on patient's age to complete this topic Insurance Medicaid
== END 2024-08-24 15:01 | disposition home or self-care (01) ==
LOC: HO.HCC 14:33
PROVIDERS: PCP Internal Medicine; Visit Provider Internal Medicine
DX: F11.21 Opioid dependence, in remission (principal)
CPT/HCPCS: 99213

== ENCOUNTER 2024-11-16 14:35 | Outpatient (AMB) | payer OTHER, SELFPAY ==
[2024-11-16 14:43] VITALS: BP 120/60; PULSE 104; O2SAT 96; BMI 21.6
--- NOTE | 2024-11-16 14:43 | MHC.OFFVIS ---
Vital Signs 11/16/24 14:43 Height 5 ft 4 in Weight 126 lb BMI 21.6 BP 120/60 Pulse 104 H Pulse Oximetry (%) 96 Intake Visit Reasons: MAT Allergies doxycycline (DOXYCYCLINE) Allergy (Mild, Verified 11/16/24 14:44) RASH terbinafine (TERBINAFINE) Allergy (Mild, Verified 11/16/24 14:44) RASH Medication List - Last Reconciled 11/16/24 by Tanna Salgado CLINICAL RESOURCE MANAGERJulitaC buprenorphine-naloxone 12-3 mg (Suboxone) 1 film sublingual Q24H 90 days HPI Comments Details: A 44-year-old female presents for a follow-up r/t SANDIE in sustained remission with buprenorphine-naloxone 12-3 mg daily. Denies use of opiates, alcohol, and other substances. Does note daily vaping and cannabis use. Reports looking forward to having son and his family moved back in and continues to work full-time for the [employer]. Review of Systems Const All systems reviewed & are unremarkable except as noted in HPI and below Physical Exam Vital Signs: Last Vital Signs Pulse 104 H 11/16/24 14:43 BP 120/60 11/16/24 14:43 Pulse Ox 96 11/16/24 14:43 BMI result Body Mass Index 21.6 Const General: cooperative Assessment & Plan Assessment & Plan (1) Opioid use disorder, moderate, in sustained remission: Comment: She is doing well Code(s): F11.21 - Opioid dependence, in remission Category: Medical Plan The plan of care is to continue with buprenorphine-naloxone 12-3 mg daily and utilize risk reduction to minimize use of vaping and cannabis use. Follow-up in 3 months or sooner if needed. Medications: Refilled buprenorphine-naloxone 12-3 mg (Suboxone) 1 film sublingual Q24H 90 ea 0RF 90 days Patient Instructions: - Continue with buprenorphine-naloxone as prescribed. - Utilize risk reduction activities to minimize use of vaping and cannabis. - Follow up in 3 months or sooner if needed. - Call with questions, concerns, or to report side effects/new onset of symptoms to [facility]. - The patient verbalized understanding and agreed with plan of care. Coding Level of Care Code Est Pt Level 3 (38329) Diagnoses Opioid use disorder, moderate, in sustained remission F11.21
--- OUTSIDE RECORDS SUMMARY | 2024-11-16 16:18 | XMS_ITS | Clinical Summary ---
Author Organization [facility] Facility Address [address] [address] Care Team Providers Care Dipper Operator Name Role Phone Unavailable Primary Care Provider [...] 19+ 3-dose series) 2001 Influenza Vaccine (#1) 2024 Pneumococcal Vaccine: Peds ( 0 to 5 Years) and At-Risk Patients (6 to 49 Years) Aged Out No longer eligible b ased on patient's age to complete this [place] [id number] [place] [address]
--- OUTSIDE RECORDS SUMMARY | 2024-11-16 16:18 | XMS_ITS ---
Author Name [facility] Organization Unknown Care Team Organization Name Specialty Phone Email Start Date End Da te [facility] Ade Montoya Primary Care 07/30/202210/23 [facility] Chio Primary [facility] 01/30/2022 11/11/2023
--- OUTSIDE RECORDS SUMMARY | 2024-11-16 16:18 | XMS_ITS | Patient Health Record ---
Author Organization [facility] Address [address] [place] [address] Care Team Providers Care Bark Scaler Name Role Phone [email or web address] TG Unavailable Allergies No Known Allergies Reason For Referral No Information Medications Medication SIG (Take, Route, Frequency, Duration) Notes Start Date End Date Status Buprenorphine HCl-Naloxone HCl 12-3 MG DISSOLVE 1 FILM UNDER TONGUE ONCE DAILY Sublingual; Duration: 90 Days Active Ondansetron HCl 4 MG 1 tablet Orally Every 6 hours; Duration: 3 days As needed for nausea 05/01/2024 Active Loperamide HCl 2 MG 2 tablets STAT Orall y then 1 tablet after each loose stool, not to exceed 8 tablets per day; Duration: 3 days 05/01/2024 Active SUMAtriptan Succinate 25 MG 1 tablet at least 2 hours between doses as needed Orally Twice a day; Duration: 1 days Do NOT exceed 100mg per dose 05/01/2024 Active Social History Tobacco Use: Social History Observation Description Date Details (start date - stop date) Former Smoker NA - NA Tobacco Control (Standard) Question Answer Notes Tobacco use: Former smoker Vital Signs Height 63 in 05/01/2024 Patient Reported Normal Blood Pressure Patient Reported Normal Temperature Weight 129 lbs 05/01/2024 Patient Reported Normal Blood Pressure Patient Reported Normal Temperature BMI 22.85 kg/m2 05/01/2024 Patient Reported Normal Blood Pressure Patient Reported Normal Temperature Encounters Encounter Location Date Provider Diagnosis [facility] [address] [place] [address] 05/01/2024 TG LORA Nausea with vomiting, unspecified R11.2 and Headache, unspecified R51.9 Assessments Encounter Date Diagnosis (ICD Code) Assessment Notes Treatment Notes Treatment Clinical Notes Section Notes 05/01/2024 Nausea with vomiting, unspecified (ICD-10 - R11.2) TREATMENT PLANMAY RETURN TO WORK 05/02/24 Patient presents with symptoms of gastroenteritis or gastritis. The etiology of this is broad (food/drink, virus, ingestion, other organ inflammatory process, etc). There are no red flag symptoms such as vomiting blood or bloody diarrhea/stools reported. There are no symptoms reported necessitating antibiotic treatment or intestinal infection workup given no elevated pathogen exposure risk known. 1. Supportive care and time is most important here. Symptom management with over the counter medications (pepto bismol, omeprazole, famotidine (if not allergic)), hydration with gatorade and powerade, and rest. 2. Try zofran (ondansetron) every 8 hours as needed for nausea if that is present. 3. If diarrhea, try loperamide every 4 hours as needed (if not allergic). 4. If abdominal pain, spasms, cramping, we can offer bentyl (dicyclomine) every 6 hours as needed 5.If your symptoms do not improve within 6 hours, an in-person evaluation is necessary Female patients only note: Some antibiotics and other medications can reduce control effectiveness. Check with your pharmacist and consider using extra protection to prevent . PATIENT EDUCATION: NAUSEA AND VOMITING When you are nauseated, you may feel weak and sweaty and notice a lot of saliva in your mouth. Nausea often leads to vomiting. Most of the time you do not need to worry about nausea and vomiting, but they can be signs of other illnesses. Two common causes of nausea and vomiting are a stomach infection and food poisoning. Nausea and vomiting from a viral stomach infection will usually start to improve within 24 hours. Nausea and vomiting from food poisoning may last from 12 to 48 hours. The doctor has checked you carefully, but problems can develop later. If you notice any problems or new symptoms, get medical treatment right away. Follow-up care is a howell part of your treatment and safety. Be sure to make and go to all appointments, and call your doctor if you are having problems. It's also a good idea to know your test results and keep a list of the medicines you take. How can you care for yourself at home? To prevent dehydration, drink plenty of fluids. Choose water and other clear liquids until you feel better. If you have kidney, heart, or liver disease and have to limit fluids, talk with your doctor before you increase the amount of fluids you drink. Rest in bed until you feel better. When you are able to eat, try clear soups, mild foods, and liquids until all symptoms are gone for 12 to 48 hours. Other good choices include dry toast, crackers, cooked cereal, and gelatin dessert, such as Jell-O. When should you call for help? Call 911 anytime you think you may need emergency care. For example, call if: You passed out (lost consciousness). Call your doctor now or seek immediate medical care if: You have symptoms of dehydration, such as: Dry eyes and a dry mouth. Passing only a little urine. Feeling thirstier than usual. You have new or worsening belly pain. You have a new or higher fever. You vomit blood or what looks like coffee grounds. Watch closely for changes in your health, and be sure to contact your doctor if: You have ongoing nausea and vomiting. Your vomiting is getting worse. Your vomiting lasts longer than 2 days. You are not getting better as expected. FIRST ASYNCHRONOUS ACUTE CARE VISIT Acute Care Visit: All subsequent visits for your concern addressed today must be conducted via video consultation. Further Management: If your symptoms do not improve, consider scheduling a follow-up video visit for further assessment, or an in-person visit for a more comprehensive evaluation. PATIENT EDUCATION: DIARRHEA Diarrhea is loose, watery stools (bowel movements). The exact cause is often hard to find. Sometimes diarrhea is your body's way of getting rid of what caused an upset stomach. Viruses, food poisoning, and many medicines can cause diarrhea. Some people get diarrhea in response to emotional stress, anxiety, or certain foods. Almost everyone has diarrhea now and then. It usually isn't serious, and your stools will return to normal soon. The important thing to do is replace the fluids you have lost, so you can prevent dehydration. The doctor has checked you carefully, but problems can develop later. If you notice any problems or new symptoms, get medical treatment right away. Follow-up care is a howell part of your treatment and safety. Be sure to make and go to all appointments, and call your doctor if you are having problems. It's also a good idea to know your test results and keep a list of the medicines you take. How can you care for yourself at home? Watch for signs of dehydration, which means your body has lost too much water. Dehydration is a serious condition and should be treated right away. Signs of dehydration are: Increasing thirst and dry eyes and mouth. Feeling faint or lightheaded. A smaller amount of urine than normal. To prevent dehydration, drink plenty of fluids. Choose water and other clear liquids until you feel better. If you have kidney, heart, or liver disease and have to limit fluids, talk with your doctor before you increase the amount of fluids you drink. PATIENT EDUCATION: GASTROENTERITIS Gastroenteritis is an illness that may cause nausea, vomiting, and diarrhea. It can be caused by bacteria or a virus. You will probably begin to feel better in 1 to 2 days. In the meantime, get plenty of rest and make sure you do not become dehydrated. Dehydration occurs when your body loses too much fluid. Follow-up care is a howell part of your treatment and safety. Be sure to make and go to all appointments, and call your doctor if you are having problems. It's also a good idea to know your test results and keep a list of the medicines you take. How can you care for yourself at home? If your doctor prescribed antibiotics, take them as directed. Do not stop taking them just because you feel better. You need to take the full course of antibiotics. Drink plenty of fluids to prevent dehydration. Choose water and other clear liquids until you feel better. If you have kidney, heart, or liver disease and have to limit fluids, talk with your doctor before you increase your fluid intake. Drink fluids slowly, in frequent, small amounts, because drinking too much too fast can cause vomiting. When you feel like eating, start with small amounts. Avoid spicy, hot, or high-fat foods, and do not drink alcohol or caffeine for a day or two. Do not drink milk or eat ice cream until you are feeling better. How to prevent food poisoning Keep your hands and your kitchen clean. Wash cutting boards and countertops often with hot, soapy water. Consider using disinfectant sprays or wipes on your counters. Keep hot foods hot and cold foods cold. Do not eat meats, dressings, salads, or other foods that have been kept at room temperature for more than 2 hours. Use a thermometer to check your refrigerator. It should be between 34 degree(s) F and 40 degree(s) F. Defrost meats in the refrigerator or microwave, not on the kitchen counter. Cook meat until it is well done. Do not eat raw eggs or uncooked sauces made with raw eggs. Do not take chances. If food looks or tastes spoiled, throw it out. Be extra careful when you travel. In some places, you may not want to drink water from the tap (including ice cubes) or eat any raw foods. When should you call for help? Call 911 anytime you think you may need emergency care. For example, call if: You passed out (lost consciousness). You have severe belly pain. You vomit blood or what looks like coffee grounds. Your stools are maroon or very bloody. Call your doctor now or seek immediate medical care if: You are dizzy or lightheaded, or feel like you may faint. You have trouble breathing or are breathing faster and passing only a little urine. You have new or worse belly pain. You have a new or higher fever. You have signs of dehydration, such as: Dry eyes and a dry mouth. Passing only a little urine. Feeling thirstier than usual. You have nausea or vomiting and can't keep fluids down. You cannot pass stools or gas. You have new or more blood in your stools or your stools are black and tarlike. Watch closely for changes in your health, and be sure to contact your doctor if: You have new or worse symptoms. You are losing weight. You do not get better as expected. 05/01/2024 Headache, unspecified (ICD-10 - R51.9) TREATMENT PLAN Patient here with headache. Type of headache is unspecified given limited information that is available (cluster vs migraine vs tension vs drug related vs infection etc). Patient reports no neuro or psychologic changes concerning enough to send to urgent care or ER at this moment. 1. Try ibuprofen 400-800mg every 8 hours as needed (if not allergic). Another option instead of this is using excedrin migraine (if not allergic). This has some caffeine in case you drink caffeine and may be withdrawing a bit. Tylenol 1000mg every 6 hours is also an option (if not allergic). We can also provide other treatment options including diclofenac as needed or meloxicam as needed for headache. If you take these, do not take aleve, advil, or any other NSAIDS. 2. I can offer tablets of sumatriptan. Take this if the first medications do not work. Can take again after 2 hours if headache returns. Max daily dose should be 100mg. If you are having nausea, we can provide zofran as needed. 3. Recommend to follow up in 3 days. If there are any neurologic changes such as weakness, visual changes, inability to care for self, severe N/V, consider going to urgent care or ER. If you have frequent headaches despite treatment with the above medications, you should highly consider seeing a neurologist.FRANCISCO Mares EDUCATION: HEADACHES Headaches have many possible causes. Most headaches aren't a sign of a more serious problem, and they will get better on their own. Home treatment may help you feel better faster. The doctor has checked you carefully, but problems can develop later. If you notice any problems or new symptoms, get medical treatment right away. Follow-up care is a howell part of your treatment and safety. Be sure to make and go to all appointments, and call your doctor if you are having problems. It's also a good idea to know your test results and keep a list of the medicines you take. How can you care for yourself at home? Rest in a quiet, dark room until your headache is gone. Close your eyes and try to relax or go to sleep. Don't watch TV or read. Put a cold, moist cloth or cold pack on the painful area for 10 to 20 minutes at a time. Put a thin cloth between the cold pack and your skin. Use a warm, moist towel or a heating pad set on low to relax tight shoulder and neck muscles. Have someone gently massage your neck and shoulders. Take pain medicines exactly as directed. If the doctor gave you a prescription medicine for pain, take it as prescribed. If you are not taking a prescription pain medicine, ask your doctor if you can take an phqw-zda-elzgzgu medicine. Do not ignore new symptoms that occur with a headache, such as a fever, weakness or numbness, vision changes, or confusion. These may be signs of a more serious problem. To prevent headaches Keep a headache diary so you can figure out what triggers your headaches. Avoiding triggers may help you prevent headaches. Record when each headache began, how long it lasted, and what the pain was like (throbbing, aching, stabbing, or dull). Write down any other symptoms you had with the headache, such as nausea, flashing lights or dark spots, or sensitivity to bright light or loud noise. For females, note if the headache occurred near your period. List anything that might have triggered the headache, such as certain foods (chocolate, cheese, wine) or odors, smoke, bright light, stress, or lack of sleep. Find healthy ways to deal with stress. Headaches are most common during or right after stressful times. Take time to relax before and after you do something that has caused a headache in the past. Try to keep your muscles relaxed by keeping good posture. Check your jaw, face, neck, and shoulder muscles for tension, and try relaxing them. When sitting at a desk, change positions often, and stretch for 30 seconds each hour. Get plenty of sleep and exercise. Eat regularly. Long periods without food can trigger a headache. Limit caffeine by not drinking too much coffee, tea, or soda. But don't quit caffeine suddenly, because that can also give you headaches. Reduce eyestrain from computers by blinking frequently and looking away from the computer screen every so often. Make sure you have proper eyewear and that your monitor is set up properly, about an arm's length away. When should you call for help? Call 911 anytime you think you may need emergency care. For example, call if: You have signs of a stroke. These may include: Sudden numbness, paralysis, or weakness in your face, arm, or leg, especially on only one side of your body. Sudden vision changes. Sudden trouble speaking. Sudden confusion or trouble understanding simple statements. Sudden problems with walking or balance. A sudden, severe headache that is different from past headaches. You have a fever and a stiff neck. You have new nausea and vomiting, or you cannot keep down food or fluids. Your headache gets much worse. Watch closely for changes in your health, and be sure to schedule a follow up if: Your headaches get worse, happen more often, or change in some way. You have new symptoms. Your life is disrupted by your headaches. For example, you often miss work, school, or other activities. You do not get better as expected. 05/01/2024 Other Follow the treatment plan as indicated by the provider. Take any medications as prescribed. If you have any questions about your prescription, ask the pharmacist. This treatment plan is based on the information you have provided to us today. Incomplete disclosure of your medical history, past treatments, or current medications may affect the effectiveness of this treatment. Call 911 anytime you think you may need emergency care. For example, call if:You have severe trouble breathing.You have a seizure.Call your doctor now or seek immediate medical care if:You have trouble breathing.You have a fever with a stiff neck or a severe headache.You have pain or pressure in your chest or belly.You have a fever or cough that returns after getting better.You feel very sleepy, dizzy, or confused.You are not urinating.You have severe muscle pain.You have severe weakness, or you are unsteady.You have medical conditions that are getting worse.Watch closely for changes in your health, and be sure to contact your doctor if:You do not get better as expected.You are having a problem with your medicine. You participated in a [facility] request, considered an asynchronous visit where you provide your symptoms and medical history, and a treatment plan is formulated based on your submission. A treatment plan and patient education were provided based on your submission. If symptoms persist or worsen, you should seek in-person care or call 911 immediately for further evaluation. Plan Of Treatment Pending Test Test Name Order Date COMPREHENSIVE METABOLIC PANEL (26234) CBC (INCLUDES DIFF/PLT) (6399) SED RATE BY MODIFIED HELGA (809) Insurance Providers Payer Name Payer Address Payer Phone Subscriber Number Group Number Insured Name Patient Relationship to Insured Coverage Start Date Coverage End Date [facility] [address] [facility] [place] [address] [id number] Demi Pablo Self - patient is the insured
--- OUTSIDE RECORDS SUMMARY | 2024-11-16 16:18 | XMS_ITS | Clinical Summary ---
[facility] Address [address] [place] [address] Care Team Providers Care Health Workers Name Role Phone Sadia Barroso MD Primary Care Provider [phone] Allergies No known active allergies Active Problems [...] Aunt 1 1st at age 63, from [place] at age 65 Other: ETOH, liver disease [...] and At-Risk Patients (6 to 49 Years) (1 of 2 - PCV) 2001 Cervical Cancer Screening: P ap Smear 06/11/2013 06/11/2010 DTaP,Tdap,and Td Vaccines (3 - Td or Tdap) 07/12/2020 07/12/2010, 08/01/2005 HIV Screening 02/24/2022 Hepatitis C Screening 02/24/2022 Social Influencers of Health Screening 02/24/2022 COVID-19 Vaccine (2023-2 5 season) 2023 Depression Screening 03/25/2024 Influenza Vaccine (#1) 2024 HPV Vaccines Completed 05/09/2007, 12/04/2006, 10/01/2006 HIB [...] age to complete this topic Meningococcal B Vaccine Aged Out No l onger eligible based on patient's age to complete [...] Recently Relevant to Health Maintenance Results * Pap Smear (06/11/2010) HM Pap smear no interpretation , abstracted Historical Provider MD HEALTH MAINTENANCE Final Result from Last 3 Months or Most Recently Relevant to Health Maintenance Care Teams Health Workers Relationship Specialty Start Date End Date Sadia Barroso MD [address] [place] [address] [facility] - General 10/25/05
== END 2024-11-16 14:56 | disposition home or self-care (01) ==
PROVIDERS: PCP Internal Medicine; Visit Provider Clinical Nurse Specialist Psychiatric/Mental Health
DX: F11.21 Opioid dependence, in remission (principal)
CPT/HCPCS: 99213

== ENCOUNTER 2025-02-15 13:58 | Outpatient (AMB) | payer OTHER, SELFPAY ==
--- NOTE | 2025-02-15 14:06 | MHC.OFFVIS ---
Vital Signs 02/15/25 14:07 BP 116/66 Pulse Oximetry (%) 100 Intake Visit Reasons: MAT Allergies doxycycline (DOXYCYCLINE) Allergy (Mild, Verified 02/15/25 14:07) RASH terbinafine (TERBINAFINE) Allergy (Mild, Verified 02/15/25 14:07) RASH HPI Comments Details: A 44-year-old female presents for a follow-up visit r/t SANDIE in sustained remission with buprenorphine-naloxone 12-3 mg daily. Denies use of opiates, alcohol, and other substances. Engages in conversation re: doing well and celebrating several years of recovery. Review of Systems Const All systems reviewed & are unremarkable except as noted in HPI and below Physical Exam Vital Signs: Last Vital Signs BP 116/66 02/15/25 14:07 Pulse Ox 100 02/15/25 14:07 Const General: cooperative Assessment & Plan Assessment & Plan (1) Opioid use disorder, moderate, in sustained remission: Comment: She is doing well Code(s): F11.21 - Opioid dependence, in remission Category: Medical Plan The plan of care is to continue with buprenorphine-naloxone 12-3 mg daily follow-up in 3 months or sooner if needed. Medications: Refilled buprenorphine-naloxone 12-3 mg (Suboxone) 1 film sublingual Q24H 90 ea 0RF 90 days Patient Instructions: - Continue with buprenorphine-naloxone as prescribed. - Follow-up in 3 months or sooner if needed. - Call with questions, concerns, or to report side effects/new onset of symptoms to [facility]. - The patient verbalized understanding and agreed with plan of care. Coding Level of Care Code Est Pt Level 3 (63016) Diagnoses Opioid use disorder, moderate, in sustained remission F11.21
[2025-02-15 14:07] VITALS: BP 116/66; O2SAT 100
--- OUTSIDE RECORDS SUMMARY | 2025-02-15 18:53 | XMS_ITS | Clinical Summary ---
Author Organization [facility] ity Address [address] [place] [address] Care Team Providers Care Juke Box Servicer Name Role Phone Sadia Barroso MD Primary Care Provider [phone] Allergies No known active allergies Active Problems Problem Noted Date Diagnosed Date Palpitation 05/01/2007 Overview (03/19/2024): Echo (-), likely related too anxiety Holter (p) Anxiety 05/01/2007 Calculus of gallbladder 01/24/2006 Immunizations Immunization Administration Dates Next Due HPV, Quadrivalent 05/09/2007,12/04/2006,10/02/19 [...] Aunt 1 1st at age 61, from [place] at age 63 Other: ETOH, liver disease [...] 02/24/2022 Social Influencers of Health Screening 02/24/2022 Depression Screening 03/25/2024 COVID-19 Vaccine ( - 2024-2 6 season) 2024 Influenza Vaccine (#1) 2024 RSV Immunization Adult Patients (1 - 1-dose 75+ series) 2057 HPV Vaccines Completed 05/09/2007, 12/04/2006, 10/01/2006 HIB [...] Health Maintenance Results * Pap Smear (06/11/2010) Pap smear no interpretation , abstracted us Historical Provider HEALTH MAINTENANCE Final Result from Last 3 Months or Most Recently Relevant to Health Maintenance Care Teams Juke Box Servicer Relationship Specialty Start Date End Date Sadia Barroso MD [address] [place] [address] PCP - General 10/25/05
== END 2025-02-15 14:24 | disposition home or self-care (01) ==
LOC: HO.HCC 13:58
PROVIDERS: PCP Internal Medicine; Visit Provider Clinical Nurse Specialist Psychiatric/Mental Health
DX: F11.21 Opioid dependence, in remission (principal)
CPT/HCPCS: 99213